=== PATIENT | male | born 1930 | race Caucasian/White ===

== ENCOUNTER → 2016-12-15 | Outpatient (CLI) | payer BC ==
[~2016-12-15] MED LIST: ALBUAER19 INH; ASPI81TA21 PO; ATOR-26 PO; FLUT220A INH; FRS/40 PO; LISI-790 PO; TERA1CAP63 PO; XRL15 PO; ZOLP5TAB PO
--- NOTE | 2016-12-15 12:06 | DIAGNOSTIC IMAGING REPORT ---
CT OF THE CHEST WITHOUT IV CONTRAST CLINICAL HISTORY: Thoracic aneurysm COMPARISON STUDY: 06/15/2016 CT DOSE: 410.57 mGy.cm TECHNIQUE: CT of the thorax was performed from the thoracic inlet to the lung bases. Images are reviewed in the axial, sagittal, and coronal planes. IV contrast was not administered for this examination. FINDINGS: Thyroid: Imaged portions of the thyroid gland are normal in appearance. Thoracic aorta: Evaluation of the thoracic aorta is limited given the lack of intravenous contrast. There is aneurysmal dilatation of the descending thoracic aorta which measures 5.5 cm in maximal diameter. Heart: There are coronary artery calcifications. There is a 4 cm right cardiophrenic angle cyst. Lungs and pleural spaces: There are progressive nodular airspace opacities within the right lower lobe medially. Mediastinum: Mediastinal lymph nodes are the upper limits of normal in size Jeni: There is no evidence of pathologic hilar adenopathy given the limitations of a noncontrast study Axilla: Clear. Upper abdomen: There is a hiatal hernia. Skeletal structures: There are no lytic or blastic osseous lesions. IMPRESSION: 1. 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 This remain similar in size 2. Coronary artery calcifications 3. Hiatal hernia 4. Progressive nonspecific nodular airspace opacities within the right lower lobe. Does this patient have clinical findings suspicious for a pneumonitis? Electronically signed by: Horacio Polo M.D. 12/15/2016 12:05 PM Dictated Date/Time: 12/15/2016 11:56 AM
== END | disposition home or self-care (01) ==
LOC: C.CTS 11:42
PROVIDERS: ATTEND Surgery
DX: I71.2 Thoracic aortic aneurysm, without rupture (principal); R91.8 Other nonspecific abnormal finding of lung field; I25.10 Atherosclerotic heart disease of native coronary artery without angina pectoris; K44.9 Diaphragmatic hernia without obstruction or gangrene

== ENCOUNTER → 2017-01-15 | Outpatient (CLI) | payer BC ==
--- NOTE | 2017-01-15 15:21 | DIAGNOSTIC IMAGING REPORT ---
RIGHT HAND MIN 3 VIEWS ROUTINE CLINICAL HISTORY: R23.3 Spontaneous hematoma of handThumb hematoma- COMPARISON: None. DISCUSSION: The bones are osteopenic. There are moderate osteoarthritic changes. No acute fractures are visualized. There is a periarticular calcification at the level of the dorsal aspect of the proximal to phalangeal joint of the index finger. IMPRESSION: Osteopenia and moderate osteoarthritic change. No acute fractures are visualized. Electronically signed by: Horacio Polo M.D. 01/15/2017 3:19 PM Dictated Date/Time: 01/15/2017 3:18 PM
== END | disposition home or self-care (01) ==
LOC: C.RAD1850 15:05
PROVIDERS: ATTEND Physician Assistant
DX: R23.3 Spontaneous ecchymoses (principal); M85.841 Other specified disorders of bone density and structure, right hand

== ENCOUNTER → 2017-02-15 | Outpatient (CLI) | payer BC | END | disposition home or self-care (01) | LOC: C.LAB1850 07:44 | PROVIDERS: ATTEND Internal Medicine Cardiovascular Disease | DX: E78.5 Hyperlipidemia, unspecified (principal) ==

== ENCOUNTER → 2017-03-17 | Outpatient (CLI) | payer BC ==
--- NOTE | 2017-03-17 09:53 | DIAGNOSTIC IMAGING REPORT ---
(CHEST) THORAX WITHOUT CT DOSE: 358.97 mGy.cm HISTORY: Follow-up study of a focal ground glass opacity TECHNIQUE: Multiaxial CT images of the chest were performed without contrast. COMPARISON: Chest CT 12/15/2016. FINDINGS: Nodular thyroid is seen with a 1.1 cm lesion of the posterior right thyroid lobe, similar from comparison and nonspecific. Evaluation for adenopathy is limited without the use of IV contrast. No pathologically enlarged lymph nodes are seen by CT size criteria. Cardiac silhouette is enlarged with extensive coronary arterial calcifications. There is moderate atherosclerosis of the aorta. There is unchanged appearance of a 5.5 cm transverse dimension saccular aneurysm of the proximal descending thoracic aorta, stable from comparison. There is no pneumothorax or pleural effusion. There is resolution of the previously described nodular alveolar opacities of the medial basal segment right lower lobe. There is minimal subsegmental areas of pleural parenchymal scarring of the lung bases. The central airways are patent. 3 mm linear area of nodularity within the posterior basal segment left lower lobe as seen on image 38 of the axial series is unchanged likely benign. Moderate sized hiatal hernia with partially intrathoracic stomach is seen. There is moderate pancreatic atrophy. Nonspecific 4 mm low attenuating lesion of the left hepatic lobe is unchanged and with statistically favor a hepatic cyst. Soft tissues are unremarkable. The bones are moderately demineralized. Prior median sternotomy. Multilevel bridging osteophytes are seen throughout the spine. IMPRESSION: 1. Resolution of the previously described nodular alveolar opacities of the medial basal segment right lower lobe compatible with healed infectious or inflammatory pneumonitis. 2. No acute cardiopulmonary process. 3. 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 4. Moderate sized hiatal hernia with partial intrathoracic stomach. Electronically signed by: Daren Sheehan M.D. 03/17/2017 9:51 AM Dictated Date/Time: 03/17/2017 9:44 AM
== END | disposition home or self-care (01) ==
LOC: C.CTS 09:27
PROVIDERS: ATTEND Surgery
DX: R91.8 Other nonspecific abnormal finding of lung field (principal)

== ENCOUNTER → 2017-08-16 | Outpatient (CLI) | payer BC ==
[2017-08-16 09:37] LABS: BASO % 0.4 %; BASO ABS # 0.02 K/uL (0-0.2); COMPLETE YES; EOS % 3.8 %; HEMATOCRIT 38.9 % (42-52); IG% 0.2 %; LYMPH % 17.5 %; LYMPH ABS # 0.93 K/uL (1.2-3.4); MEAN CELL VOLUME 93.1 fL (80-100); MEAN CORPUSCULAR HEMOGLOBIN 29.9 pg (25-34); MEAN CORPUSCULAR HGB CONC 32.1 g/dl (32-36); MEAN PLATELET VOLUME 9.7 fL (7.4-10.4); MONO % 7.2 %; NEUT % 70.9 %; PLATELET COUNT 126 K/uL (130-400); RED BLOOD COUNT 4.18 M/uL (4.7-6.1); WHITE BLOOD COUNT 5.31 K/uL (4.8-10.8)
[2017-08-16 10:01] LABS: ALT/SGPT 32 U/L (12-78); AST/SGOT 28 U/L (15-37); BLOOD UREA NITROGEN 18 mg/dl (7-18); BUN/CREATININE RATIO 15.9 (10-20); CALCIUM 8.2 mg/dl (8.5-10.1); CARBON DIOXIDE 29 mmol/L (21-32); CHLORIDE 110 mmol/L (98-107); GLUCOSE 100 mg/dl (70-99); POTASSIUM 3.7 mmol/L (3.5-5.1); SODIUM 141 mmol/L (136-145)
[2017-08-16 10:04] LABS: ALKALINE PHOSPHATASE 64 U/L (45-117); CHOLESTEROL 122 mg/dl (0-200); CHOLESTEROL/HDL RATIO 1.7; HDL CHOLESTEROL 72 mg/dl; LDL CHOLESTEROL CALCULATED 42 mg/dl; TRIGLYCERIDES 38 mg/dl (0-150); VERY LOW DENSITY LIPOPROT CALC 8 mg/dl
== END | disposition home or self-care (01) ==
LOC: C.LAB1850 08:00
PROVIDERS: ATTEND Internal Medicine Pulmonary Disease
DX: J45.909 Unspecified asthma, uncomplicated (principal); I10 Essential (primary) hypertension; N40.0 Benign prostatic hyperplasia without lower urinary tract symptoms; G47.00 Insomnia, unspecified; I25.5 Ischemic cardiomyopathy; R91.8 Other nonspecific abnormal finding of lung field

== ENCOUNTER 2018-09-21 11:24 | Inpatient (IN) ==
--- NOTE | 2018-09-15 09:50 | Anesthesiology Consultation ---
Date of Service September 15, 2018 Assessment & Plan (1) Encounter for pre-operative examination: Plan: - Surgery originally scheduled 07/19/18; rescheduled due to not optimized per pulmonary. Asthma exacerbation 06/2018 s/p antibiotics/prednisone. Seen again by pulmonary= 09/05/18= "patient is much better on his current regimen of inhlaers and is back to his baseline...still shows significant obstructive changes on his PFTs but is currently stable.. can proceed with his surgery with Dr. Mijares" - Cardio= 06/15/18= "acceptable risk to proceed with upcoming surgery without any additional CV testing or intervention. Recommend close monitoring and avoidance of hypotension HTN, tachycardia, hypoxia, and significant anemia throughout the perioperative period to reduce myocardial oxygen demand and meet myocardial oxygen delivery. Seen again by cardio= 08/18/18= "stable from a CV standpoint." - Plan for lumbar drain; Dr. Chambers aware of case/updated testing and states okay to proceed with surgery. Chart Review Chart Review: Acceptable Risk for Surgery and Patient NOT seen in Pre Admission Testing History Surgery Operation Date: 09/21/18 13:00 Proposed Procedures p Thoracic Endovascular Aneurysm Repair - Beny Mijares MD Height/Weight Height: 5 ft 9 in Weight: 90.718 kg Allergies Allergy/AdvReac Type Severity Reaction Status Date / Time No Known Allergies Allergy Verified 08/31/15 11:42 Medications Home Medications Medication Instructions Recorded Confirmed Last Taken albuterol sulfate [ProAir HFA] 2 puff INHALATION Q4 PRN 05/19/18 09/07/18 Unknown aspirin 81 mg PO QAM 05/19/18 09/07/18 06/08/18 atorvastatin 80 mg PO HS 05/19/18 09/07/18 06/08/18 furosemide 40 mg PO Q2D 05/19/18 09/07/18 Unknown terazosin 10 mg PO QAM 05/19/18 09/07/18 06/08/18 zolpidem 10 mg PO HS 05/19/18 09/07/18 06/08/18 lisinopril 10 mg PO QAM 06/09/18 09/07/18 06/08/18 metoprolol tartrate 0.5 tab PO BID 06/24/18 09/07/18 Unknown budesonide-formoterol [Symbicort] 2 puff INHALATION BID 09/07/18 09/07/18 Unknown Past Medical History Medical History Thrombocytopenia CHRONIC Asthma RESCUE INHALER LAST USED A COUPLE DAYS AGO BPH (benign prostatic hyperplasia) CAD (coronary artery disease) S/P CABG X3 (2014) CHF (congestive heart failure) DIASTOLIC- NO RECENT ISSUES COPD (chronic obstructive pulmonary disease) Cancer SKIN History of atrial fibrillation PAROXYSMAL; "NO ANTICOAGULATION D/T SPONTANEOUS HEMORRHAGE" PER CARDIO RECORDS History of leukemia CHEMO (10+ YEARS AGO) Hx of deep venous thrombosis 10 YEARS AGO WHEN DX WITH LEUKEMIA Hx of gastroesophageal reflux (GERD) CONTROLLED Hyperlipidemia Hypertension Myocardial infarction S/P CABG X3 (2014) AT [facility] Neuropathy Obesity Osteoarthritis Peripheral neuropathy Thoracic aortic aneurysm REASON FOR PROCEDURE= 6.5CM* Past Family History Family History Other No pertinent family history Past Surgical History Surgical History History of cataract surgery LEFT History of tonsillectomy History of tooth extraction History of total right hip arthroplasty Hx of colonoscopy Hx of transurethral resection of prostate Social History Smoking Status: Former smoker tobacco type: cigarettes Smoking cigarettes per day: QUIT 40 YRS AGO; "LIGHT USE" PRIOR TO QUITTING Do You Dip or Chew Tobacco: No Smoking End Date: QUIT OVER 40 YEARS AGO Hx Alcohol Use: Yes Alcohol type: wine alcohol intake frequency: 0-2 drinks per day Alcohol Intake Frequency Comment: 8OUNCES DAILY Hx Substance Use: No substance use type: does not use Testing Electrocardiogram Date: 06/09/18 SR with first degree AVB with PACs at 66bpm. Minimal voltage criteria for LVH, may be normal variant. Inferior/anterior infarct (cited on/before per cardio). Chest X-Ray Date: 06/09/18 Abnormal left mediastinal contour due to the known descending thoracic aortic aneurysm. This is suboptimally assessed by radiography. Followup pulmonary office visit done 09/05/18 Echocardiogram Date: 09/01/15 LVEF 50%. Moderate anterospetal HK. Mild global HK of remaining segments. Mild aorta ascending dilation 4cm. No significant valvular disease. Cardiac Catheterization Date: 01/23/15 Severe 3V CAD (80-95% left main, 95% pLAD/pD1/pleft CX, 80% pOM1, 100% pRCA with left to right distal collateralization). Subsequent CABG x 3 done Pulmonary Function Test Date: 09/05/18 Severe obstructive airways disease. FEV1 1.32; 45% predicted. Laboratory Results 09/13/18 WBC 4.96 H/H 10.8/34.4 PLATELETS 114 SODIUM 142 POTASSIUM 4.1 CHLORIDE 110 CO2 27 BUN 20 CREATININE 1.23 GLUCOSE 91 PT 11.1 PTT 27.6 INR 1.1
--- NOTE | 2018-09-21 06:01 | History & Physical Report ---
Date of Service September 21, 2018 Assessment & Plan (1) Descending thoracic aortic aneurysm: Patient is admitted for a TEVAR of his descending thoracic aortic aneurysm. I have discussed the risks options and benefits of the procedure with the patient. The patient understands the risks options and benefits and agrees to the procedure. History of Present Illness Chief Complaint: Descending thoracic aneurysm Primary Care Provider: Abelardo Kenney MD Mr. Abelardo Salazar is a pleasant 88-year-old gentleman with multiple medical comorbidities who is being seen for a 6.5 cm thoracic aortic aneurysm. The patient says that he first learned about his aneurysm in 2014, when he had a heart attack and underwent a CABG. This was done [facility]. The patient says that he was seen by Dr. Bates for this and then referred to us for further evaluation and possible intervention. In the interim, the patient developed right-sided chest pain that he felt was musculoskeletal. He did have some weakness at that time and due to the concern for his aneurysm, he presented to the Emergency Department for further evaluation. He underwent a chest CT that did show increase in his aneurysm size from previously 5.5 one year ago to 6.5 cm now. Presently, he denies any chest pain or back pain. Regarding risk factors, the patient denies any family history of aneurysmal disease. He does note that his mother suddenly at the age of 63, but they are unclear as to the etiology of her passing. He additionally says that he had a remote tobacco use, but that it was very brief. The patient says that he smoked a few cigarettes 40 years ago. 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 He does say that he can ambulate as far as he needs to and denies symptoms of claudication Allergies Allergy/AdvReac Type Severity Reaction Status Date / Time No Known Allergies Allergy Verified 08/31/15 11:42 Home Medications Home Medications Medication Instructions Recorded Confirmed Type albuterol sulfate [ProAir HFA] 2 puff INHALATION Q4 PRN 05/19/18 09/07/18 History aspirin 81 mg PO QAM 05/19/18 09/07/18 History atorvastatin 80 mg PO HS 05/19/18 09/07/18 History furosemide 40 mg PO Q2D 05/19/18 09/07/18 History terazosin 10 mg PO QAM 05/19/18 09/07/18 History zolpidem 10 mg PO HS 05/19/18 09/07/18 History lisinopril 10 mg PO QAM 06/09/18 09/07/18 History metoprolol tartrate 0.5 tab PO BID 06/24/18 09/07/18 History budesonide-formoterol [Symbicort] 2 puff INHALATION BID 09/07/18 09/07/18 History Past Med/Surg History Medical History Asthma RESCUE INHALER LAST USED A COUPLE DAYS AGO BPH (benign prostatic hyperplasia) CAD (coronary artery disease) S/P CABG X3 (2014) CHF (congestive heart failure) DIASTOLIC- NO RECENT ISSUES COPD (chronic obstructive pulmonary disease) Cancer SKIN History of atrial fibrillation PAROXYSMAL; "NO ANTICOAGULATION D/T SPONTANEOUS HEMORRHAGE" PER CARDIO RECORDS History of leukemia CHEMO (10+ YEARS AGO) Hx of deep venous thrombosis 10 YEARS AGO WHEN DX WITH LEUKEMIA Hx of gastroesophageal reflux (GERD) CONTROLLED Hyperlipidemia Hypertension Myocardial infarction S/P CABG X3 (2014) AT [place] Neuropathy Obesity Osteoarthritis Peripheral neuropathy Thoracic aortic aneurysm REASON FOR PROCEDURE= 6.5CM* Thrombocytopenia CHRONIC Surgical History History of cataract surgery LEFT History of tonsillectomy History of tooth extraction History of total right hip arthroplasty Hx of colonoscopy Hx of transurethral resection of prostate Family History Other No pertinent family history Social History Current Living Situation: Spouse Feels Safe at Home: Yes Smoking Status: Former smoker Second Hand Exposure: No Hx Alcohol Use: Yes Alcohol type: wine Alcohol Intake Frequency: 0-2 drinks per day Hx Substance Use: No Beliefs That Will Affect Care: None Preferred Language: Beninese Communication Ability: Effective Review of Systems All systems reviewed & are unremarkable except as noted in HPI & below Physical Exam 2 Vital Signs (Past 24 Hours): In general, he is awake, alert, and pleasant, in no acute distress. His neck is supple and trachea is midline. I did not appreciate a bruit over either carotid. His lungs are clear to auscultation bilaterally. His heart is regular rate and rhythm. His abdomen is obese, soft , nontender, nondistended. The patient has palpable femoral pulses bilaterally. He additionally has palpable DP pulses in his bilateral feet. He does have an approximately 5 cm cystic structure on his right lower calf. This is nontender to palpation. It is also a nonpulsatile. The patient underwent a CT of the chest on May 05, 2018. This confirmed presence of a 6.5 x 5.8 cm saccular aneurysm of the descending thoracic aorta.
[~2018-09-21 11:24] MED LIST changes: -ALBUAER19 INH; -ASPI81TA21 PO; -ATOR-26 PO; +BUPIVACAINE/EPINEPHRINE 0.5% MPF 1:200,000 30 ML VIAL ONE; +CEFAZOLIN 2000MG 2,000 MG/15 ML SYR IV SCH; -FLUT220A INH; -FRS/40 PO; +KETAMINE HCL INJ 50 MG/ML 10 ML VIAL ONE; +LIDOCAINE HCL 2% 2 ML VIAL/AMP(20MG/ML) INFIL ONE; -LISI-790 PO; +LR 15ML/HR IV SCH; +MIDAZOLAM HCL 1 MG/ML 2ML VIAL ONE; +PHENYLEPHRINE HCL 10 MG/ML VIAL ONE; +SODIUM CHLORIDE 0.9% 1000ML IV SCH; -TERA1CAP63 PO; -XRL15 PO; -ZOLP5TAB PO; +fentaNYL citrate 100 MCG/2 ML VIAL ONE
[2018-09-21] MEDS ORDERED: LIDOCAINE 2% JELLY 5 ML TUBE ONE (11:42)
--- NOTE | 2018-09-21 11:43 | History & Physical Bridge Note ---
Date of Service September 21, 2018 History & Physical Bridge Note I have examined the patient, reviewed the History & Physical and in the interval since the performance of the History & Physical I have noted the following changes of clinical significance: no changes noted
[2018-09-21] MEDS ORDERED: HYDROmorphone INJ 1 MG/ML SYRINGE IV PRN (12:49)
[2018-09-21] MEDS ORDERED: LABETALOL HCL IV 5 MG/ML 20ML IV PRN (12:49)
[2018-09-21] MEDS ORDERED: ATROPINE SULFATE 0.1 MG/ML 10ML SYR IV PRN (12:49)
[2018-09-21] MEDS ORDERED: ONDANSETRON INJ 2 MG/ML 2 ML VIAL IV PRN ×2 (12:49→17:14)
[2018-09-21] MEDS ORDERED: MIDAZOLAM HCL 1 MG/ML 2ML VIAL ONE (13:26)
[2018-09-21] MEDS ORDERED: fentaNYL citrate 100 MCG/2 ML VIAL ONE (14:27)
[2018-09-21] MEDS ORDERED: PROPOFOL IV EMULSION 10 MG/ML 20 ML VIAL IV ONE (14:54)
[2018-09-21] MEDS ORDERED: SUCCINYLCHOLINE 100MG/5ML SYR ONE (14:54)
[2018-09-21] MEDS ORDERED: ePHEDrine sulfate 50 MG/ML SYR ONE (14:54)
[2018-09-21] MEDS ORDERED: PROTAMINE SULFATE 10 MG/ML 5 ML VIAL ONE (14:54)
[2018-09-21] MEDS ORDERED: HEPARIN SOD (PORCINE) 1000 UNIT/ML 10 ML VIAL ONE (14:54)
[2018-09-21] MEDS ORDERED: LARYING-O-JET KIT (LTA) ONE (14:55)
[2018-09-21] MEDS ORDERED: ESMOLOL HCL INJ 10 MG/ML 10ML VIAL IV ONE (15:24)
--- NOTE | 2018-09-21 16:02 | Post Operative Brief Note ---
Immediate Post Op Note v1 Date of Surgery September 21, 2018 Pre & Post Diagnosis Operation Date: 09/21/18 13:10 Pre-Op Diagnosis: Thoracic Aortic Aneurysm Post-Op Diagnosis: Thoracic Aortic Aneurysm Procedure Operation Date: 09/21/18 13:10 Actual Procedures p Thoracic endovascular Aneurysm repair, Right groin exposure(Bilateral) - Beny Mijares MD Surgeon Beny Mijares MD Flosser A MD Woody Estimated Blood Loss 250 Findings Consistent with Post-Op Diagnosis Drains Escobar Catheter Anesthesia Type General Complications none Disposition Accompanied Patient To Recovery: No Disposition: Surgical ICU
--- NOTE | 2018-09-21 16:21 | Operative Report ---
Post Operative Report Pre & Post Diagnosis Operation Date: 09/21/18 13:10 Pre-Op Diagnosis: Thoracic Aortic Aneurysm Post-Op Diagnosis: Thoracic Aortic Aneurysm Procedure Operation Date: 09/21/18 13:10 Actual Procedures p Thoracic endovascular Aneurysm repair, Right groin exposure(Bilateral) - eBny Mijares MD Surgeon Beny Mijares MD C Application Developer Tomi Mckay MD Estimated Blood Loss 250 Findings Consistent with Post-Op Diagnosis Specimens None Anesthesia Type General Complications none Disposition Accompanied Patient To Recovery: No Disposition: Surgical ICU Indications This is an 88-year-old male with a known history of a thoracic aortic aneurysm, which grew recently from 5.5 cm to 6.5 cm and therefore repair is indicated. He was in agreement to the procedure after full explanation of the risks and benefits. Description of Procedure Patient was brought to the operating room and identified as Abelardo Salazar. A lumbar drain was placed by our anesthesia colleagues without complication with good flow of CSF. He was then positioned supine on the operating table and a Escobar catheter was placed and a radial arterial line was placed. Monitored anesthesia care was given. His bilateral groins were prepped and draped in the usual sterile fashion. The left common femoral artery was accessed with a needle through which a wire was introduced and a 5 Moroccan sheath was then introduced. Angiogram confirmed positioning within the common femoral artery. Similarly, on the right, a needle was used to access the right common femoral artery through which a wire was advanced and a 5 Moroccan sheath was placed. Angiography here again revealed placement within the common femoral artery which was of large caliber able to accommodate the 24 Moroccan sheath eventually. At that point the 5 Moroccan sheath was removed from the right groin and a Perclose device was placed over the wire and fired without incident. A second Perclose device was then placed over the wire, but appeared to have issues with deployment so was removed. A third Perclose device was then advanced over the wire and deployed. A fourth Perclose device was similarly applied. At this point, an 8 Moroccan sheath was advanced over the wire into the right common femoral artery, but did not appear to create a good seal with the arteriotomy. Therefore this was replaced with an 11 Moroccan sheath, which also did not create a good seal of the wrist significant bleeding around the sheath with a small groin hematoma. At that point, it was felt that the Perclose device may have misfired and caused injury to the artery, therefore the decision was made to do an open cutdown of the right groin. A vertical incision was made over the puncture site and the tissues were dissected with electrocautery. A combination of blunt dissection with hemostats and electrocautery were then used to isolate the common femoral artery, an angled DeBakey clamps were used to gain proximal and distal control. At this point, the bleeding was greatly reduced. A vessel loop was passed twice around the artery proximally and held in place with a hemostat, which then provided adequate proximal control. It was noted at this point that significant transverse shredding of the common femoral artery had occurred with use of the PerClose device, leaving a large arteriotomy through which the 8 Moroccan sheath followed by the 11 Moroccan sheath were passed. These were noted to go up the right iliac arteries into the aorta without issue. Therefore under fluoroscopy the 22 Moroccan dilator was passed proximally into the right common iliac artery. This was then removed and the 24 Moroccan sheath advanced into the right common iliac artery. Through this, a Lunderquist wire was used to advance proximally into the area of the proximal descending aorta up in the thoracic cavity. Through the left-sided 5 Moroccan sheath, a Woodson wire was inserted but the left common iliac artery was noted to take a tortuous course. Therefore the Kumpe catheter was inserted over the wire and used to help guide the wire proximally up to the proximal descending aorta. This was then replaced with a pigtail catheter. An aortogram was performed that showed the aneurysm in its entirety as well as adequate proximal and distal landing zones. A 37 mm x 10 cm CTAG device was selected as an endograft. This was inserted through the 24 Moroccan sheath after it had been advanced into the distal aorta over the dilator. The device was positioned with the proximal most extent in the proximal landing zone. It was deployed without issue, however noted that it did not quite extend long enough to reach the distal landing zone adequately. Therefore the decision was made to place another device, this time at 37 mm x 15 cm CTAG device, within the initial graft. This was similarly advanced at the aorta through the 24 Moroccan sheath, with its proximal landing site being at the level of the previous proximal landing site, but the distal landing zone extending about 5 cm beyond the previous one. This was also deployed without difficulty. A trilobed balloon was then inserted through the 24 Moroccan sheath and used with manual inflation to balloon the areas at the proximal landing zone, distal landing zone, as well as the area of overlap between the 2. Completion aortogram noted brisk flow of contrast through the endograft without signs of leak. Attention was then turned to the right groin, where DeBakey clamps were reapplied to gain proximal control of the common femoral artery and the vessel loop was removed. The artery was noted to come together nicely in a transverse fashion, therefore 5-0 Prolene was used in a simple interrupted fashion to transversely close the arteriotomy site. Good pulses were noted in the distal common femoral artery after this repair. Hemostasis was achieved with electrocautery. A sheet of Surgicel was applied temporarily while attention was turned to the left groin, where a Star close device was used to close the arteriotomy and the 5 Moroccan sheath site of the left common femoral artery. This was deployed without issue and Arixtra was applied within the wound. Attention was then returned to the right groin, where the Surgicel was removed and hemostasis was noted. Femoral sheath was closed with 2-0 Vicryl in a running fashion. The subcutaneous tissues were closed with 3-0 Vicryl in a running subcutaneous fashion. The skin was closed with dahiana. At the end of the case, all instrument counts were correct. Patient tolerated the procedure well without issues and his spinal cord fusion pressure was maintained above 85 mmHg throughout the case. Approximately 10 mL's of CSF was drained during the case to achieve this. He was transferred to the ICU in stable condition. Dr. Mijares was present and scrubbed for the entire procedure. I attest to the content of the Intraoperative Record and any orders documented therein. Any exceptions are noted below.
[2018-09-21] MEDS ORDERED: ARISTA ABSORBABLE HEMOSTAT 3GM TOP ONE (16:23)
[2018-09-21] MEDS ORDERED: VISIPAQUE IV PRN (16:24)
[2018-09-21] MEDS ORDERED: SURGICEL ABSORB HEMOSTAT 2IN X 14IN TOP ONE (16:32)
[2018-09-21] MEDS ORDERED: ALBUTEROL HFA 8 GM INHALER INH PRN (17:14)
[2018-09-21] MEDS ORDERED: MoRPHine SULFATE 4 MG/ML 1 ML CARP\\VIAL IV PRN (17:14)
[2018-09-21] MEDS: D5W AND 1/2NSS 1,000 ML IV SCH (17:15)
--- NOTE | 2018-09-21 17:25 | Anesthesiology Progress Note ---
Date of Service September 21, 2018 Anesthesia Post Procedure Vital Signs Vital Signs: Temp Pulse Pulse Resp BP BP BP 09/21/18 17:01 70 22 160/91 H 09/21/18 17:00 36 C L 75 21 09/21/18 16:56 66 22 151/87 H 09/21/18 16:51 68 19 160/92 H 09/21/18 16:50 60 19 09/21/18 16:46 73 17 156/92 H 09/21/18 16:41 64 21 154/87 H 09/21/18 16:40 75 21 09/21/18 16:35 70 23 156/84 H 09/21/18 16:31 70 27 H 09/21/18 16:25 36.4 C L 69 20 194/87 H 09/21/18 12:09 36.9 C 72 20 173/103 H 177/97 H Pulse Ox 09/21/18 17:01 96 09/21/18 17:00 98 09/21/18 16:56 98 09/21/18 16:51 97 09/21/18 16:50 96 09/21/18 16:46 95 09/21/18 16:41 97 09/21/18 16:40 97 09/21/18 16:35 98 09/21/18 16:31 99 09/21/18 16:25 99 09/21/18 12:09 96 Notes Mental Status: alert / awake / arousable Patient Amnestic to Procedure: Yes Nausea / Vomiting: adequately controlled Pain: adequately controlled Airway Patency, RR, SpO2: stable & adequate BP & HR: stable & adequate Hydration State: stable & adequate Anesthetic Complications: no major complications apparent and Pt Satisfied with anesthetic care Notes: The patient is stable in the ICU. He has an epidural drain. Dr. Chambers spoke to Dr. Ackerman about the patient after the procedure was over.
[2018-09-21 17:30] LABS: Basophils # (auto) 0.02 K/uL (0-0.2); Basophils % (auto) 0.3 %; Eosinophils # (auto) 0.18 K/uL (0-0.5); Eosinophils % (auto) 2.7 %; Hemoglobin 8.6 g/dL (14.0-18.0); Immature Granulocytes # (auto) 0.01 K/uL (0.00-0.02); Immature Granulocytes % (auto) 0.2 %; Lymphocytes # (auto) 0.58 K/uL (1.2-3.4); Lymphocytes % (auto) 8.7 %; Mean Corpuscular Volume 93.4 fL (80-100); Mean Platelet Volume 9.3 fL (7.4-10.4); Monocytes # (auto) 0.34 K/uL (0.11-0.59); Monocytes % (auto) 5.1 %; Neutrophils # (auto) 5.52 K/uL (1.4-6.5); Platelet Count 100 K/uL (130-400); RDW Coefficient of Variation 15.5 % (11.5-14.5); RDW Standard Deviation 52.8 fL (36.4-46.3); Red Blood Count 2.89 M/uL (4.7-6.1); White Blood Count 6.65 K/uL (4.8-10.8)
[2018-09-21 18:01] LABS: Mean Corpuscular Hgb Conc 31.9 g/dL (32-36)
[2018-09-21 18:02] LABS: Ovalocytes 1+; Schistocytes 1+
[2018-09-21] MEDS ORDERED: SODIUM CHLORIDE 0.9% 250 ML IV PRN (18:30)
[2018-09-21] MEDS ORDERED: INFLUENZA ADMINISTRATION CHARGE ONE (19:45)
[2018-09-21] MEDS ORDERED: PNEUMOCOCCAL POLYSACCHARIDES 25 MCG/0.5 ML VIAL/SYR IM ONE (19:45)
[2018-09-21] MEDS ORDERED: INFLUENZA VACCINE HIGH DOSE 65+ 0.5 ML SYR IM ONE (19:45)
[2018-09-21] MEDS ORDERED: PNEUMOCOCCAL ADMINISTRATION CHARGE ONE (19:45)
[2018-09-21] MEDS ORDERED: SODIUM CHLORIDE 0.9% 1000ML 500 ML IV ONE (21:29)
[2018-09-21] MEDS: ATORVASTATIN 40 MG TAB PO SCH (21:51)
[2018-09-21] MEDS: BUDESONIDE/FORMOTEROL FUMARATE 160/4.5 60 PUFFS/INHALER INH SCH (21:52)
[2018-09-21] MEDS: CEFAZOLIN 1000MG 1,000 MG/7.5 ML SYR IV SCH (21:52)
[2018-09-22] MEDS: OXYCODONE/ACETAMINOPHEN 5mg/325mg TAB PO PRN ×4 (00:24→22:03)
[2018-09-22] MEDS: ZOLPIDEM TARTRATE 10 MG TAB PO SCH ×2 (00:25→22:05)
[2018-09-22] MEDS ORDERED: SODIUM CHLORIDE 0.9% 1000ML 500 ML IV ONE (00:34)
[2018-09-22] MEDS: D5W AND 1/2NSS 1,000 ML IV SCH ×2 (00:54→09:03)
[2018-09-22 05:05] LABS: Hematocrit (blood only) 26.4 % (42-52); Hemoglobin 8.4 g/dL (14.0-18.0); Mean Corpuscular Hgb Conc 31.8 g/dL (32-36); Mean Corpuscular Volume 92.6 fL (80-100); RDW Coefficient of Variation 15.9 % (11.5-14.5); RDW Standard Deviation 53.9 fL (36.4-46.3); Red Blood Count 2.85 M/uL (4.7-6.1); White Blood Count 7.16 K/uL (4.8-10.8)
[2018-09-22 05:24] LABS: Basophils # (auto) 0.01 K/uL (0-0.2); Basophils % (auto) 0.1 %; Eosinophils # (auto) 0.17 K/uL (0-0.5); Eosinophils % (auto) 2.4 %; Immature Granulocytes # (auto) 0.02 K/uL (0.00-0.02); Immature Granulocytes % (auto) 0.3 %; Lymphocytes # (auto) 0.64 K/uL (1.2-3.4); Lymphocytes % (auto) 8.9 %; Mean Platelet Volume 9.5 fL (7.4-10.4); Neutrophils # (auto) 5.82 K/uL (1.4-6.5); Neutrophils % (auto) 81.3 %; Platelet Count 85 K/uL (130-400); Polychromasia 1+
[2018-09-22] MEDS: CEFAZOLIN 1000MG 1,000 MG/7.5 ML SYR IV SCH (05:30)
[2018-09-22 05:51] LABS: BUN Creatinine Ratio 19.1 (10-20); Calcium 7.4 mg/dl (8.5-10.1); Creatinine Clr Calc Pharmacy 80.2 ml/min; Est GFR (African American) 96.1; Est GFR (Non-African American) 82.9; Potassium 3.5 mmol/L (3.5-5.1)
[2018-09-22] MEDS ORDERED: SODIUM CHLORIDE 0.9% 250 ML IV PRN (06:06)
--- NOTE | 2018-09-22 08:12 | Anesthesiology Progress Note ---
Date of Service September 22, 2018 Anesthesia Post Procedure Vital Signs Vital Signs: Temp Pulse Pulse Resp BP BP BP 09/22/18 07:30 80 30 H 09/22/18 07:00 69 25 H 127/80 09/22/18 06:30 63 24 09/22/18 06:22 36.7 C 70 24 155/64 H 09/22/18 06:00 64 25 H 131/76 09/22/18 05:30 73 25 H 09/22/18 05:00 126/77 09/22/18 04:30 77 25 H 09/22/18 04:20 75 24 09/22/18 04:10 78 25 H 09/22/18 04:00 09/22/18 03:30 82 24 09/22/18 03:00 85 26 H 09/22/18 02:39 130/74 09/22/18 02:00 76 23 130/74 09/22/18 01:47 83 09/22/18 01:00 71 22 137/81 09/22/18 00:01 74 22 147/91 H 09/21/18 23:01 36.4 C L 67 22 156/84 H 09/21/18 23:00 09/21/18 22:00 75 22 154/77 H 09/21/18 21:30 36.5 C 67 20 09/21/18 21:00 73 20 135/86 09/21/18 20:45 68 20 162/71 H 09/21/18 20:30 66 23 09/21/18 20:15 36.3 C L 74 17 160/73 H 09/21/18 20:00 82 21 136/78 09/21/18 19:26 36.4 C L 85 25 H 158/59 H 09/21/18 19:15 09/21/18 19:01 36.4 C L 90 21 125/74 09/21/18 18:30 82 20 09/21/18 18:01 85 19 155/83 H 09/21/18 18:00 77 28 H 09/21/18 17:30 70 23 09/21/18 17:28 71 24 159/94 H 09/21/18 17:26 72 23 161/94 H 09/21/18 17:21 71 18 156/86 H 09/21/18 17:16 69 23 151/89 H 09/21/18 17:11 68 21 152/90 H 09/21/18 17:06 71 24 157/81 H 09/21/18 17:01 70 22 160/91 H 09/21/18 17:00 36 C L 75 21 09/21/18 16:56 66 22 151/87 H 09/21/18 16:51 68 19 160/92 H 09/21/18 16:50 60 19 09/21/18 16:46 73 17 156/92 H 09/21/18 16:41 64 21 154/87 H 09/21/18 16:40 75 21 09/21/18 16:35 70 23 156/84 H 09/21/18 16:31 70 27 H 09/21/18 16:25 36.4 C L 69 20 194/87 H 09/21/18 12:09 36.9 C 72 20 173/103 H 177/97 H Pulse Ox 09/22/18 07:30 100 09/22/18 07:00 96 09/22/18 06:30 99 09/22/18 06:22 97 09/22/18 06:00 95 09/22/18 05:30 95 09/22/18 05:00 98 09/22/18 04:30 100 09/22/18 04:20 99 09/22/18 04:10 100 09/22/18 04:00 100 09/22/18 03:30 99 09/22/18 03:00 99 09/22/18 02:39 09/22/18 02:00 99 09/22/18 01:47 09/22/18 01:00 99 09/22/18 00:01 100 09/21/18 23:01 100 09/21/18 23:00 100 09/21/18 22:00 100 09/21/18 21:30 100 09/21/18 21:00 100 09/21/18 20:45 100 09/21/18 20:30 100 09/21/18 20:15 99 09/21/18 20:00 100 09/21/18 19:26 100 09/21/18 19:15 100 09/21/18 19:01 99 09/21/18 18:30 100 09/21/18 18:01 97 09/21/18 18:00 98 09/21/18 17:30 99 09/21/18 17:28 98 09/21/18 17:26 95 09/21/18 17:21 98 09/21/18 17:16 97 09/21/18 17:11 96 09/21/18 17:06 98 09/21/18 17:01 96 09/21/18 17:00 95 09/21/18 16:56 98 09/21/18 16:51 97 09/21/18 16:50 96 09/21/18 16:46 95 09/21/18 16:41 97 09/21/18 16:40 97 09/21/18 16:35 98 09/21/18 16:31 99 09/21/18 16:25 99 09/21/18 12:09 96 Pain Intensity Lower Back: Pain Intensity: 3 Notes Mental Status: alert / awake / arousable Patient Amnestic to Procedure: Yes Nausea / Vomiting: adequately controlled Pain: adequately controlled Airway Patency, RR, SpO2: stable & adequate BP & HR: stable & adequate Hydration State: stable & adequate Anesthetic Complications: no major complications apparent Notes: Patient looks very good, breathing comfortably. Platelet count dropped slightly post-op. Will need to monitor for when spinal drain needs to be removed.
[2018-09-22] MEDS: BUDESONIDE/FORMOTEROL FUMARATE 160/4.5 60 PUFFS/INHALER INH SCH ×2 (09:01→22:04)
[2018-09-22] MEDS: FUROSEMIDE 40 MG TAB PO SCH (09:01)
[2018-09-22] MEDS: ASPIRIN 81 MG ECTAB PO SCH (09:01)
[2018-09-22] MEDS: TERAZOSIN HCL 5 MG CAP PO SCH (09:01)
[2018-09-22] MEDS: LISINOPRIL 10 MG TAB PO SCH (09:02)
--- NOTE | 2018-09-22 09:45 | Communication Note ---
Date of Service: September 22, 2018 Patient with Hgb of 8.4. Will transfuse one unit. This is blood loss anemia from the surgical procedure.
--- NOTE | 2018-09-22 13:02 | Surgery Progress Note ---
Date of Service September 22, 2018 Assessment & Plan (1) Descending thoracic aortic aneurysm: Patient doing well today, will discontinue arterial line, spinal drain, and alvarado catheter. Continue diet as tolerated and wound care to the right groin. Continue home medications, including aspirin 81 mg, statin, beta jaya , and lasix. Encourage walking and deep breathing after catheters removed today. Possible discharge to home tomorrow. Present on Admission?: Yes Subjective No issues overnight, pain well controlled currently. Has intact sensation and motor function of both lower extremities without any deficits. Is tolerating food without nausea/vomiting. Has not been out of bed yet due to presence of spinal drain. Review of Systems All systems reviewed & are unremarkable except as noted in HPI & below Physical Exam 2 Vital Signs (Past 24 Hours): Last Vital Signs Temp 36.7 C 09/22/18 12:00 Pulse 90 09/22/18 12:00 Resp 18 09/22/18 12:00 BP 118/64 09/22/18 12:00 Pulse Ox 94 09/22/18 12:00 Constitutional: well developed and well nourished Eyes: + anicteric sclerae Neck: normal visual inspection Respiratory: normal respiratory effort Cardiovascular: Rate/Rhythm: regular rate and regular rhythm Extremities: normal capillary refill Gastrointestinal (Abdomen): Percussion/Palpation: abdomen soft Musculoskeletal: Flank ecchymoses on R side without progression past markings , no large ecchymoses, no ecchymoses/hematoma of L groin puncture site Skin: no rashes, warm and dry Neurologic: normal touch/pain/proprioception, CN's II-XI intact bilaterally, moves all extremities and awake
--- NOTE | 2018-09-22 13:19 | Procedure Note ---
Procedure Note Date of Service September 22, 2018 Patient s/p endovascular thoracic aneurysm repair, doing well, surgeon requesting removal of his lumbar drain in anticipation of sending him home in the next couple days. Patient on his side, catheter out easily, no obvious drainage, site clear, tip intact. Will have him stay supine for 2 hours and was told not to do any lifting for at least several days. Reviewed post dural puncture headache - what to watch for, treatment if necessary, etc. He has not had any symptoms thus far.
[2018-09-22] MEDS: ATORVASTATIN 40 MG TAB PO SCH (22:04)
[2018-09-23] MEDS: OXYCODONE/ACETAMINOPHEN 5mg/325mg TAB PO PRN ×4 (03:29→20:43)
[2018-09-23] MEDS: LISINOPRIL 10 MG TAB PO SCH (07:50)
[2018-09-23] MEDS: BUDESONIDE/FORMOTEROL FUMARATE 160/4.5 60 PUFFS/INHALER INH SCH ×2 (07:50→20:39)
[2018-09-23] MEDS: TERAZOSIN HCL 5 MG CAP PO SCH (07:50)
[2018-09-23] MEDS: ASPIRIN 81 MG ECTAB PO SCH (07:50)
[2018-09-23] MEDS ORDERED: BISACODYL 10 MG SUPP PR PRN (08:49)
[2018-09-23] MEDS: DOCUSATE SODIUM 100 MG CAP PO SCH ×2 (09:37→20:38)
--- NOTE | 2018-09-23 10:32 | Surgery Progress Note ---
Date of Service September 23, 2018 Assessment & Plan (1) S/P thoracic aortic aneurysm repair: Pt doing well postop, remains stable. Remove alvarado and voiding trial today. Per ES, transfer to floor. Present on Admission?: No (2) Descending thoracic aortic aneurysm: Pt now s/p TEVAR with R groin cutdown, doing well. Present on Admission?: Yes Subjective 88 yo m POD #2 after TEVAR for descending thoracic aneurysm, seen in f/u today. Pt admits some pain R groin/flank, but states is mild. Admits penile pain with movement d/t swelling. Denies any other complaints. Physical Exam 2 Vital Signs (Past 24 Hours): Last Vital Signs Temp 36.7 C 09/23/18 08:00 Pulse 92 H 09/23/18 08:00 Resp 18 09/23/18 08:00 BP 114/67 09/23/18 08:00 Pulse Ox 95 09/23/18 08:00 Constitutional: well developed and well nourished Neck: normal visual inspection Respiratory: normal respiratory effort Cardiovascular: Rate/Rhythm: regular rate and regular rhythm Extremities: normal capillary refill Gastrointestinal (Abdomen): Percussion/Palpation: abdomen soft Skin: no rashes, warm and dry Neurologic: normal touch/pain/proprioception, CN's II-XI intact bilaterally, moves all extremities and awake
[2018-09-23] MEDS: ATORVASTATIN 40 MG TAB PO SCH (20:38)
[2018-09-23] MEDS: ZOLPIDEM TARTRATE 10 MG TAB PO SCH (20:44)
[2018-09-24] MEDS: ASPIRIN 81 MG ECTAB PO SCH (07:54)
[2018-09-24] MEDS: DOCUSATE SODIUM 100 MG CAP PO SCH (07:54)
[2018-09-24] MEDS: TERAZOSIN HCL 5 MG CAP PO SCH (07:54)
[2018-09-24] MEDS: LISINOPRIL 10 MG TAB PO SCH (07:55)
[2018-09-24] MEDS: FUROSEMIDE 40 MG TAB PO SCH (07:55)
[2018-09-24] MEDS: BUDESONIDE/FORMOTEROL FUMARATE 160/4.5 60 PUFFS/INHALER INH SCH (07:55)
--- NOTE | 2018-09-24 08:18 | Surgery Progress Note ---
Date of Service September 24, 2018 Assessment & Plan (1) Descending thoracic aortic aneurysm: This patient is doing well from his TVAR procedure. At this point he is being discharged today and will follow-up in the office in 1 week. Subjective This patient has no complaints. He does feel slightly weak but is able to get around without difficulty. He is tolerating his diet and he has no complaints of weakness in his legs. Physical Exam 2 Vital Signs (Past 24 Hours): Last Vital Signs Temp 36.7 C 09/24/18 07:31 Pulse 90 09/24/18 07:31 Resp 24 09/24/18 07:31 BP 161/90 H 09/24/18 07:31 Pulse Ox 94 09/24/18 07:31 Physical exam is awake alert and oriented x3.Abdominal exam is benign with good breath sounds. Is got good femoral pulses with good Doppler signals in the foot. His incision is well approximated and is healing nicely. The scrotum and penis edema has decreased. He is able to void without any difficulty.
--- NOTE | 2018-09-28 12:56 | Discharge Summary ---
Date of Service September 28, 2018 Admission HPI Per Admitting Provider Mr. Abelardo Salazar is a pleasant 88-year-old gentleman with multiple medical comorbidities who is being seen for a 6.5 cm thoracic aortic aneurysm. The patient says that he first learned about his aneurysm in 2014, when he had a heart attack and underwent a CABG. This was done [facility]. The patient says that he was seen by Dr. Bates for this and then referred to us for further evaluation and possible intervention. In the interim, the patient developed right-sided chest pain that he felt was musculoskeletal. He did have some weakness at that time and due to the concern for his aneurysm, he presented to the Emergency Department for further evaluation. He underwent a chest CT that did show increase in his aneurysm size from previously 5.5 one year ago to 6.5 cm now. Presently, he denies any chest pain or back pain. Regarding risk factors, the patient denies any family history of aneurysmal disease. He does note that his mother suddenly at the age of 63, but they are unclear as to the etiology of her passing. He additionally says that he had a remote tobacco use, but that it was very brief. The patient says that he smoked a few cigarettes 40 years ago. 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 He does say that he can ambulate as far as he needs to and denies symptoms of claudication Admission Exam Per Admitting Provider Pt is awake, alert, and pleasant, in no acute distress. His neck is supple and trachea is midline. I did not appreciate a bruit over either carotid. His lungs are clear to auscultation bilaterally. His heart is regular rate and rhythm. His abdomen is obese, soft, nontender, nondistended. The patient has palpable femoral pulses bilaterally. He additionally has palpable DP pulses in his bilateral feet. He does have an approximately 5 cm cystic structure on his right lower calf. This is nontender to palpation. It is also a nonpulsatile. The patient underwent a CT of the chest on May 05, 2018. This confirmed presence of a 6.5 x 5.8 cm saccular aneurysm of the descending thoracic aorta. Pt admitted for endovascular repair of descending thoracic aortic aneurysm. Principal Diagnosis 1. s/p Thoracic Endovascular Aneurysm Repair (TEVAR) 2. Descending thoracic aortic aneurysm Discharge Exam Constitutional well developed and well nourished Neck normal visual inspection Respiratory normal respiratory effort Cardiovascular Rate/Rhythm: regular rate and regular rhythm Extremities: normal capillary refill Gastrointestinal (Abdomen) Percussion/Palpation: abdomen soft Skin no rashes, warm and dry Neurologic normal touch/pain/proprioception, CN's II-XI intact bilaterally, moves all extremities and awake Discharge Data Allergies Allergy/AdvReac Type Severity Reaction Status Date / Time No Known Allergies Allergy Verified 09/21/18 11:51 Consultations 09/21/18 11:43 Consult [employer] Routine Procedures Performed Operation Date: 09/21/18 13:10 Actual Procedures p Thoracic endovascular Aneurysm repair, Right groin exposure(Bilateral) - Beny Mijares MD Ordered Studies 09/21/18 10:48 EV endorepair dscnd thor aorta Routine Hospital Course (1) S/P thoracic aortic aneurysm repair: Pt did well post op from TEVAR with groin cutdown. Spinal drain removed POD #1, pt without any neuro deficits. Minimal pain. Craig to be stable for d/ c POD #3 (2) Descending thoracic aortic aneurysm: Pt now s/p TEVAR with R groin cutdown, doing well. Total Time Total Time Spent Total Time Spent (In Minutes): 30 minutes Total Time Includes: Examination of the Patient, Discharge Planning, Medication Reconciliation and Communication With Other Providers Discharge Plan Discharge Items Patient Disposition: Home - Self-Care Reason For Visit: Thoracic Aortic Aneurysm Discharge Diagnosis: Descending thoracic aortic aneurysm Discharge Goals: Therapeutic intervention Activity: Per 'Additional Instructions' section Non-emergency contact: Surgeon Call non-emergency contact if: you have any medication questions, your symptoms worsen, your pain is not controlled, your pain is worsening, your pain is unusual for you, your pain is concerning for you, your temperature is above 101.5, your wound has increased redness, your wound has increased drainage and your wound pain has increased Follow-up/Referrals: Abelardo Kenney MD [Primary Care Provider] - Diet: Heart Healthy Addtl Provider Instructions: SPECIAL CARE INSTRUCTIONS: Medications: * Continue to take your medications as directed. Incision/Puncture Site Care: * You will have an incision or puncture in each of your groins. Liquid glue will be used to seal your incisions/puncture site. This will lift off as the incisions/puncture sites heal. * If Liquid glue is not used, there will be small dressings covering your incisions. After you get home, you may remove the dressings and shower - allowing the warm soapy water to run over it. * Be sure to dry the sites well and keep them dry. * DO NOT SOAK IN A TUB/POOL/etc. UNTIL ALL SURGICAL SITES ARE HEALED. DO NOT REMOVE THE GLUE UNTIL THE INCISIONS HEAL. Restrictions: * Limit yourself to doctor of nurse anesthesia activity for the first week. * You may walk and go up and down steps. * Avoid excessive bending or movement at the level of the incisions or punctures. Risks and Possible Complications: * Infection/Drainage/Bleeding - Drainage or bleeding from the incisions/ puncture site should be minimal. If you have excessive bleeding or drainage, call our office ([phone]) right away. * Pain/Numbness - You may experience some mild pain or soreness at your incision sites. You may also have some numbness around the incisions or into the insides of your thighs. Bruising is normal and should resolve within 2 weeks. * Changes in Appetite or Bowel Habits - Mostly related to anesthesia and pain medication, some patients have reported decreased appetite and/or problems with constipation. These symptoms usually improve over a few weeks. Remembering to take an [id number] stool softener, as directed, will help you to avoid constipation. Call our office and seek emergent treatment if you develop: * Fever or chills * Have a temperature greater than 101 degrees F * Any redness or purulent drainage from your incisions or punctures * Severe abdominal, chest or back pain SKIN IRRITATION: * You may experience some redness and/or swelling in the area where radiation was administered. If any skin irritation occurs, please contact your family physician. You will be receiving a call from the Vascular Surgery Nurse after you are discharged. FOLLOW UP VISIT: It is important for you to keep your follow up appointments with your medical provider. Keep any scheduled doctor appointments. Prescriptions: New oxycodone-acetaminophen [Percocet] 5-325 mg Tablet 1 tab PO Q4H PRN (Reason: pain) Qty: 30 RF: 0 Continue furosemide 40 mg tablet 40 mg PO Q2D RF: 0 atorvastatin 80 mg tablet 80 mg PO HS RF: 0 aspirin 81 mg Tablet,Delayed Release (Dr/Ec) 81 mg PO QAM RF: 0 zolpidem 10 mg tablet 10 mg PO HS RF: 0 albuterol sulfate 90 mcg/actuation HFA aerosol inhaler 2 puff Inhalation Q4 PRN (Reason: Shortness Of Breath) RF: 0 terazosin 10 mg capsule 10 mg PO QAM RF: 0 lisinopril 10 mg tablet 10 mg PO QAM RF: 0 metoprolol tartrate 25 mg Tablet 0.5 tab PO BID RF: 0 budesonide-formoterol [Symbicort] 160-4.5 mcg/actuation Hfa Aerosol Inhaler 2 puff INHALATION BID RF: 0 Stand-Alone Forms: [facility]Less/Other Patient Handouts: Oxycodone Hydrochloride Acetaminophen Oral tablet Discharge Orders: Discharge Order (Routine); Ordered 09/24/18 Ordered By: Beny Mijares Admission Data Admit Date/Time: 09/21/18 11:43 Attending Provider: Beny Mijares Admit Provider: Beny Mijares Primary Care Provider: Abelardo Kenney. Service: Medical Other Interventions: Discharge Summary Assessment (RN) Last Done: 09/24/18 11:26 DC Date/Time DO NOT enter until pt leaves facility: 09/24/18 12:58
== END 2018-09-24 12:58 | disposition home or self-care (01) | DRG 220 ==
LOC: ASU 11:24 → 1E 11:43 → 3W 09-23 12:27
PROC: M.TEVAR (2018-09-21 13:10)
DX: I25.2 Old myocardial infarction; M19.90 Unspecified osteoarthritis, unspecified site; Z79.899 Other long term (current) drug therapy; E66.9 Obesity, unspecified; D69.6 Thrombocytopenia, unspecified; I50.30 Unspecified diastolic (congestive) heart failure; D62 Acute posthemorrhagic anemia; Z68.30 Body mass index [BMI] 30.0-30.9, adult; Z95.1 Presence of aortocoronary bypass graft; Z79.51 Long term (current) use of inhaled steroids; Y83.8 Other surgical procedures as the cause of abnormal reaction of the patient, or of later complication, without mention of misadventure at the time of the procedure; I97.51 Accidental puncture and laceration of a circulatory system organ or structure during a circulatory system procedure; Z79.82 Long term (current) use of aspirin; J44.9 Chronic obstructive pulmonary disease, unspecified; I11.0 Hypertensive heart disease with heart failure; Z87.891 Personal history of nicotine dependence; N40.0 Benign prostatic hyperplasia without lower urinary tract symptoms; I71.2 Thoracic aortic aneurysm, without rupture; Y71.3 Surgical instruments, materials and cardiovascular devices (including sutures) associated with adverse incidents; E78.5 Hyperlipidemia, unspecified; Y92.234 Operating room of hospital as the place of occurrence of the external cause; I25.10 Atherosclerotic heart disease of native coronary artery without angina pectoris

== ENCOUNTER 2019-05-31 18:53 | Inpatient (IN) ==
[2019-05-31] MEDS: DEXAMETHASONE **PF** INJ 10 MG/ML VIAL IV ONE ×2 (19:33→19:34)
[2019-05-31 19:38] LABS: Basophils # (auto) 0.03 K/uL (0-0.2); Basophils % (auto) 0.5 %; Eosinophils # (auto) 0.21 K/uL (0-0.5); Eosinophils % (auto) 3.4 %; Hematocrit (blood only) 37.4 % (42-52); Hemoglobin 12.1 g/dL (14.0-18.0); Immature Granulocytes # (auto) 0.01 K/uL (0.00-0.02); Immature Granulocytes % (auto) 0.2 %; Lymphocytes # (auto) 1.17 K/uL (1.2-3.4); Lymphocytes % (auto) 19.2 %; Mean Corpuscular Hemoglobin 29.7 pg (25-34); Mean Corpuscular Hgb Conc 32.4 g/dL (32-36); Mean Corpuscular Volume 91.9 fL (80-100); Mean Platelet Volume 9.7 fL (7.4-10.4); Monocytes # (auto) 0.41 K/uL (0.11-0.59); Monocytes % (auto) 6.7 %; Neutrophils # (auto) 4.26 K/uL (1.4-6.5); Platelet Count 109 K/uL (130-400); RDW Coefficient of Variation 15.1 % (11.5-14.5); RDW Standard Deviation 50.9 fL (36.4-46.3); Red Blood Count 4.07 M/uL (4.7-6.1); White Blood Count 6.09 K/uL (4.8-10.8)
[2019-05-31 19:56] LABS: Albumin Level 3.6 gm/dl (3.4-5.0); BUN Creatinine Ratio 17.3 (10-20); Calcium 8.5 mg/dl (8.5-10.1); Creatinine Clr Calc Pharmacy 47.8 ml/min; Est GFR (African American) 62.2; Est GFR (Non-African American) 53.7; Magnesium 2.1 mg/dl (1.8-2.4); Potassium 3.6 mmol/L (3.5-5.1)
[2019-05-31 20:07] LABS: Bilirubin,Total 0.6 mg/dl (0.2-1); Globulin 3.7 gm/dl (2.5-4.0); Thyroid Stimulating Hormone 4.76 uIu/ml (0.300-4.500); Total Protein 7.3 gm/dl (6.4-8.2)
[2019-05-31 20:20] LABS: T4 Free Thyroxine 0.99 ng/dl (0.8-1.6)
--- NOTE | 2019-05-31 20:38 | Emergency Department Note ---
Entered by Apoorva Hickman acting as a scribe for History of Present Illness General Chief complaint: Neck Injury/Pain Stated complaint: SWELLING IN NECK Time Seen by Provider: 05/31/19 19:00 Source: patient and RN notes reviewed Mode of arrival: EMS History of Present Illness Onset (ago): week(s) 3 Location: neck Pain Consistency: + other (Worsening) Quality: + other (Neck pain) Associated symptoms: + other (Positive neck pain, numbness. Negative fall, trauma, congestion.); no cough, no fever/chills and no shortness of breath Treatments prior to arrival: other (MRI) The patient is a 89 year old male who presents to the Emergency Department via EMS complaining of worsening neck pain starting 3 weeks ago. The patient reports that his neck hurts. He states that he is losing strength in his arms. He explains that he can not lift his left arm and that it feels slightly numb. He notes that he has neuropathy in his legs and that this is worsening. He adds that he received an MRI [employer] for his symptoms. The patients nurse reports that the patient an MRI [employer]. She states that the MRI showed stenosis and potential edema to the patients spinal cord. She explains that the patient was called and told to come to the ED because of this MRI. The patient denies recent falls or trauma, fevers, chills, cough, congestion and shortness of breath. Home Medications Home Medications Medication Instructions Recorded Confirmed Type aspirin 81 mg PO QAM 05/19/18 05/31/19 History atorvastatin 80 mg PO HS 05/19/18 05/31/19 History furosemide 40 mg PO QAM 05/19/18 05/31/19 History zolpidem 10 mg PO HS 05/19/18 05/31/19 History lisinopril 10 mg PO QAM 06/09/18 05/31/19 History metoprolol tartrate 12.5 tab PO BID 06/24/18 05/31/19 History Symbicort 2 puff INHALATION BID 09/07/18 05/31/19 History albuterol sulfate [ProAir HFA] 2 puff INHALATION Q4H PRN 05/31/19 05/31/19 History terazosin 10 mg PO QAM 05/31/19 05/31/19 History Allergies Allergy/AdvReac Type Severity Reaction Status Date / Time No Known Allergies Allergy Verified 05/31/19 19:31 Past Med/Surg History Medical History CHF (congestive heart failure) (Resolved) DIASTOLIC- NO RECENT ISSUES 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) Hx of deep venous thrombosis (Resolved) 10 YEARS AGO WHEN DX WITH LEUKEMIA Myocardial infarction (Resolved) S/P CABG X3 (2014) AT [place] Thoracic aortic aneurysm (Resolved) REASON FOR PROCEDURE= 6.5CM* Peripheral neuropathy Surgical History History of cataract surgery (Resolved) LEFT History of tonsillectomy (Resolved) History of tooth extraction (Resolved) History of total right hip arthroplasty (Resolved) Hx of colonoscopy (Resolved) Hx of transurethral resection of prostate (Resolved) S/P thoracic aortic aneurysm repair (Resolved) Family History Other No pertinent family history Social History Preferred Language: Latvian Communication Ability: Effective Risk Control Consultant Required: No Beliefs That Will Affect Care: None Current Living Situation: Spouse Feels Safe at Home: Yes Smoking Status: Former smoker Tobacco Type: cigarettes ; Cigarettes Per Day: QUIT 40 YRS AGO; "LIGHT USE" PRIOR TO QUITTING ; Second Hand Exposure: No ; Hx Alcohol Use: Yes Alcohol type: wine Hx Substance Use: No Review of Systems See HPI for pertinent positives & negatives. and A total of 10 systems reviewed and were otherwise negative Physical Exam Vital Signs Vital Signs - 24 hr 05/31/19 18:56 05/31/19 18:59 05/31/19 19:15 Temperature 36.6 C Temperature Source Oral Sepsis Recent Fever Within 48 Hours No Sepsis New/Unexplained Change in Mental Status No Sepsis Action Taken by Nursing No Action Required Pulse Rate 52 L 69 Pulse Rate from SpO2 Sensor Pulse Rhythm Regular Pulse Strength Normal Respiratory Rate 17 16 Respiratory Effort / Characteristics Non-Labored Spontaneous Respiratory Depth Normal Respiratory Pattern Regular Blood Pressure 160/84 H 160/84 H Blood Pressure Mean 109 109 Blood Pressure Position Lying Pulse Oximetry 95 95 Oxygen Delivery Method Room Air Room Air 05/31/19 19:28 05/31/19 19:30 05/31/19 20:00 Temperature Temperature Source Sepsis Recent Fever Within 48 Hours Sepsis New/Unexplained Change in Mental Status Sepsis Action Taken by Nursing Pulse Rate 52 L 51 L 62 Pulse Rate from SpO2 Sensor Pulse Rhythm Pulse Strength Respiratory Rate 17 10 L 15 Respiratory Effort / Characteristics Respiratory Depth Respiratory Pattern Blood Pressure Blood Pressure Mean Blood Pressure Position Pulse Oximetry Oxygen Delivery Method 05/31/19 20:30 05/31/19 20:46 05/31/19 21:00 Temperature Temperature Source Sepsis Recent Fever Within 48 Hours Sepsis New/Unexplained Change in Mental Status Sepsis Action Taken by Nursing Pulse Rate 54 L 55 L 56 L Pulse Rate from SpO2 Sensor 53 L 57 L Pulse Rhythm Pulse Strength Respiratory Rate 14 16 14 Respiratory Effort / Characteristics Respiratory Depth Respiratory Pattern Blood Pressure 170/87 H 172/98 H Blood Pressure Mean 114 122 Blood Pressure Position Pulse Oximetry 97 95 Oxygen Delivery Method Room Air Room Air 05/31/19 21:01 Temperature Temperature Source Sepsis Recent Fever Within 48 Hours Sepsis New/Unexplained Change in Mental Status Sepsis Action Taken by Nursing Pulse Rate 61 Pulse Rate from SpO2 Sensor 47 L Pulse Rhythm Pulse Strength Respiratory Rate 12 Respiratory Effort / Characteristics Respiratory Depth Respiratory Pattern Blood Pressure Blood Pressure Mean Blood Pressure Position Pulse Oximetry 96 Oxygen Delivery Method Room Air GENERAL: Patient is in no acute distress. HEENT: No acute trauma, normocephalic atraumatic, mucous membranes moist, no nasal congestion, no scleral icterus. NECK: No stridor, no adenopathy, no meningismus, trachea is midline. LUNGS: Clear to auscultation bilaterally, no wheeze, no rhonchi, breath sounds equal. HEART: 2/6 systolic murmur. Regular rate and rhythm. ABDOMEN: Soft, nontender, bowel sounds positive, no hernias, no peritonitis. EXTREMITIES: No cyanosis. Full range of motion of all the joints without pain or difficulty, no signs for acute trauma. RLE edema. Mild in severity. NEUROLOGIC: Awake and alert. Can move all extremities. Strength is intact in lower extremities bilaterally. Rehab Specialist strength is equal and strong in upper extremities. Proximal arm strength is poor, especially on the left. SKIN: No rash, no jaundice, no diaphoresis. Course 190: The patient was evaluated in room A4A, and a complete history and physical examination were performed. 191: EMR reviewed. The patient had a lumbar spine MRI today. Found to have mo derate spinal stenosis at L2 to L3 and moderate to severe stenosis at L3 to L4. MRI of C Spine without Contrast showed central canal stenosis at C4-C5 with compression of the spinal cord and cord edema. There were other levels of stenosis but nothing as severe as C4-C5. 1928: I discussed the patients case with Dr. Juan Spinal surgery. He recommends to give the patient 10 mg Decadron IV now and to admit the patient. 173: I discussed the patients case with Dr. Micki ORTIZ hospitalist. He will evaluate the patient for further management. 1952: I updated the patient at this time. He states that he is okay with coming into the hospital. Consultations Consultation #1: I discussed the patients case with Dr. Juan Spinal surgery. He recommends to give the patient 10 mg Decadron IV now and to admit the patient. Time: 19:28 Consultation #2: I discussed the patients case with Dr. Micki ORTIZ hospitalist. He will evaluate the patient for further management. Time: 17:34 Administered Medications Discontinued Medications Dexamethasone Sodium Phosphate (Decadron Pf) 10 mg IV NOW ONE Stop: 05/31/19 19:22 Last Admin: 05/31/19 19:34 Dose: Not Given Documented by: [id number] Admin: 05/31/19 19:33 Dose: 10 mg Documented by: [id number] Medical Decision Making Differential Diagnosis Differentials include cord compression, spinal stenosis, edema, neuropathy, electrolyte imbalance, anemia, nerve impingement and disc disease amongst others. Medical Records Attestation: I reviewed the patient's medical records. Home Medications Current Medication List: was personally reviewed by me Laboratory Data Attestation: I reviewed the patient's lab results. Result diagrams: 05/31/19 19:25 05/31/19 19:25 Lab Results 05/31/19 05/31/19 Range/Units 19:25 19:25 WBC 6.09 (4.8-10.8) K/uL RBC 4.07 L (4.7-6.1) M/uL Hgb 12.1 L (14.0-18.0) g/dL Hct 37.4 L (42-52) % MCV 91.9 (80-100) fL MCH 29.7 (25-34) pg MCHC 32.4 (32-36) g/dL RDW Std Deviation 50.9 H (36.4-46.3) fL RDW Coeff of Jes 15.1 H (11.5-14.5) % Plt Count 109 L (130-400) K/uL MPV 9.7 (7.4-10.4) fL Immature Gran % (Auto) 0.2 % Neut % (Auto) 70.0 % Lymph % (Auto) 19.2 % [place] % (Auto) 6.7 % Eos % (Auto) 3.4 % Baso % (Auto) 0.5 % Immature Gran # (Auto) 0.01 (0.00-0.02) K/uL Neut # (Auto) 4.26 (1.4-6.5) K/uL Lymph # (Auto) 1.17 L (1.2-3.4) K/uL [place] # (Auto) 0.41 (0.11-0.59) K/uL Eos # (Auto) 0.21 (0-0.5) K/uL Baso # (Auto) 0.03 (0-0.2) K/uL Sodium 144 (136-145) mmol/L Potassium 3.6 (3.5-5.1) mmol/L Chloride 109 H (98-107) mmol/L Carbon Dioxide 29 (21-32) mmol/L Anion Gap 6.0 (3-11) BUN 21 H (7-18) mg/dl Creatinine 1.20 (0.6-1.4) mg/dl Est Cr Clr Drug Dosing 47.8 ml/min Est GFR ( Amer) 62.2 Est GFR (Non-Af Amer) 53.7 BUN/Creatinine Ratio 17.3 (10-20) Glucose 73 (70-99) mg/dl Calcium 8.5 (8.5-10.1) mg/dl Magnesium 2.1 (1.8-2.4) mg/dl Total Bilirubin 0.6 (0.2-1) mg/dl AST 35 (15-37) U/L ALT 35 (12-78) U/L Alkaline Phosphatase 70 (45-117) U/L Total Protein 7.3 (6.4-8.2) gm/dl Albumin 3.6 (3.4-5.0) gm/dl Globulin 3.7 (2.5-4.0) gm/dl Albumin/Globulin Ratio 1.0 (0.9-2) TSH 4.760 H (0.300-4.500) uIu/ml Free T4 0.99 (0.8-1.6) ng/dl ECG Data Attestation: I personally reviewed and interpreted this ECG as follows: Indication: other (atrial fibrillation) Rate (beats per minute): 54 Rhythm: atrial fibrillation Findings: + other (Old inferior and anterior infarct. QTC 415. ); no ST elevation Comparison ECG Date: from (10/26/18) Change: no significant change Blood Pressure Blood Pressure Findings: Elevated blood pressure Blood Pressure Disposition: further management by hospitalist MDM Narrative There is no leukocytosis. No concerning anemia. Platelet count was slightly low at 109. No significant electrolyte abnormality or kidney failure. No worrisome liver enzyme elevation. TSH was slightly high however, the T4 was normal. I was able to review the MRI results from earlier today. There was lumbar spinal stenosis. There was stenosis in the cervical spine with cord impingement and cord edema. I think the findings on MRI explain the upper extremity weakness. I spoke to the on-call spinal surgeon. He recommended a hospital stay and IV steroids. The patient received IV Decadron, 10 mg. I spoke to the patient, I spoke with the case consultant. The on-call hospitalist has been consulted. Patient will likely require a neurosurgical procedure given his findings. Hospitalization is warranted. Impression & Plan Cervical spinal cord compression, Upper extremity weakness Discharge Plan Visit Data Chief Complaint: Neck Injury/Pain Stated Complaint: SWELLING IN NECK ED Provider: Branden Finch Discharge Problem: Cervical spinal cord compression, Upper extremity weakness Patient Disposition: Being Evaluated by Hospitalist Forms Stand Alone Forms: My [facility] Prescriptions Prescriptions: No Action terazosin 10 mg capsule 10 mg PO QAM RF: 0 albuterol sulfate [ProAir HFA] 90 mcg/actuation HFA aerosol inhaler 2 puff inhalation Q4H PRN (Reason: Shortness Of Breath) RF: 0 furosemide 40 mg tablet 40 mg PO QAM RF: 0 atorvastatin 80 mg tablet 80 mg PO HS RF: 0 aspirin 81 mg Tablet,Delayed Release (Dr/Ec) 81 mg PO QAM RF: 0 zolpidem 10 mg tablet 10 mg PO HS RF: 0 lisinopril 10 mg tablet 10 mg PO QAM RF: 0 metoprolol tartrate 25 mg Tablet 12.5 tab PO BID RF: 0 Symbicort 160-4.5 mcg/actuation Hfa Aerosol Inhaler 2 puff INHALATION BID RF: 0 Referrals Referrals: Abelardo Kenney MD [Primary Care Provider] - The scribe's documentation has been prepared under my direction and personally reviewed by me in its entirety. I confirm that the note above accurately reflects all work, treatment, procedures, and medical decision making performed by me.
--- NOTE | 2019-05-31 21:38 | History & Physical Report ---
Date of Service May 31, 2019 Assessment & Plan (1) Cervical spinal cord compression: - C and L spine MRIs completed - Spine surgeons to evaluate for operation after medical optimization - loaded with 10 mg Decadron, continuing with 4 mg Q6 (2) Paroxysmal atrial fibrillation: - rate controlled with home medications - taken off anticoagulation years ago due to continuous bleeding episodes while on Xarelto - SCDs and TEDs ordered for DVT prophylaxis; - pt has hx of DVT -- will likely need to start anticoagulation as soon as possible after surgery (3) Essential hypertension: continued home lisinopril and metoprolol (4) Coronary artery disease: - hx CABG - currently on aspirin (5) CHF (congestive heart failure): - holding lasix prior to surgery - Dr. Mauricio to see patient and decide cardiac clearance for surgery History of Present Illness Chief Complaint: weakness in upper extremities Primary Care Provider: Abelardo Kenney MD Mr. Salazar is a pleasant 89 yo M with extensive PMH including hairy cell leukemia, paroxysmal afib, thrombocytopenia, gerd, BPH, CAD and CABG, who presented to the ED for upper extremity weakness for the past few weeks. He says the weakness started about 3 weeks ago with having general fatigue in lifting his arms above his head but steadily worsened to the point where he was having issues lifting his arms high enough to brush his hair. He attests to feelings of numbness and tingling in both hands with it being worse more prominent in the left. He also attests to recently losing his sense of balance in his feet. He is unable to stand for periods of time because his feet feel like cotton and he is unsure of where he is putting them. He denies any pain, headache, blurring or changing of vision. C-spine MRI in the ED notable for "C3-C4: There is marked disc space narrowing with posterior disc osteophyte complex. This indents the ventral aspect of the cord. There is severe central canal narrowing. Severe left and moderate to severe right neural foraminal narrowing is noted. C4-C5: There is disc space narrowing with posterior disc osteophyte complex and ligamentous hypertrophy that result in severe central canal narrowing with associated cord edema. Severe bilateral neural foraminal stenosis is noted due to facet arthrosis and uncovertebral hypertrophy." Allergies Allergy/AdvReac Type Severity Reaction Status Date / Time No Known Allergies Allergy Verified 05/31/19 19:31 Home Medications Home Medications Medication Instructions Recorded Confirmed Type aspirin 81 mg PO QAM 05/19/18 05/31/19 History atorvastatin 80 mg PO HS 05/19/18 05/31/19 History furosemide 40 mg PO QAM 05/19/18 05/31/19 History zolpidem 10 mg PO HS 05/19/18 05/31/19 History lisinopril 10 mg PO QAM 06/09/18 05/31/19 History metoprolol tartrate 12.5 tab PO BID 06/24/18 05/31/19 History Symbicort 2 puff INHALATION BID 09/07/18 05/31/19 History albuterol sulfate [ProAir HFA] 2 puff INHALATION Q4H PRN 05/31/19 05/31/19 History terazosin 10 mg PO QAM 05/31/19 05/31/19 History Past Med/Surg History Medical History CHF (congestive heart failure) (Resolved) DIASTOLIC- NO RECENT ISSUES 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) Hx of deep venous thrombosis (Resolved) 10 YEARS AGO WHEN DX WITH LEUKEMIA Myocardial infarction (Resolved) S/P CABG X3 (2014) AT [place] Thoracic aortic aneurysm (Resolved) REASON FOR PROCEDURE= 6.5CM* Peripheral neuropathy Surgical History History of cataract surgery (Resolved) LEFT History of tonsillectomy (Resolved) History of tooth extraction (Resolved) History of total right hip arthroplasty (Resolved) Hx of colonoscopy (Resolved) Hx of transurethral resection of prostate (Resolved) S/P thoracic aortic aneurysm repair (Resolved) Family History Other No pertinent family history Social History Preferred Language: Estonian Communication Ability: Effective Drying Room Operator Required: No Beliefs That Will Affect Care: None Current Living Situation: Spouse and Personal Care Facility Other Information That Helps Us Care for You: Yes (cabg and aa stent 1 year ago) Feels Safe at Home: Yes Safety Concerns: Feels Safe At This Time Smoking Status: Former smoker Tobacco Type: cigarettes ; Cigarettes Per Day: QUIT 40 YRS AGO; "LIGHT USE" PRIOR TO QUITTING ; Do You Dip or Chew Tobacco: No ; Smoking End Date: 50 yr ago ; Second Hand Exposure: No ; Hx Alcohol Use: Yes Alcohol type: wine Hx Substance Use: No Review of Systems Constitutional: no fever, no chills, no body aches and no weakness Eyes: no blind spots, no eye pain, no photophobia and no worsening vision Respiratory: no cough, no dyspnea and no pain with cough Cardiovascular: + edema; no chest pain and no palpitations Gastrointestinal: no abdominal pain, no nausea, no vomiting, no constipation and no diarrhea/loose stools Musculoskeletal: + muscle weakness (bilateral upper extremity); no neck pain, no joint pain and no stiffness Physical Exam Constitutional: well developed, well nourished, + obese, cooperative and comfortable Respiratory: normal respiratory effort and able to speak in complete sentences; no respiratory distress, no labored breathing and no cough Auscultation: lungs clear to auscultation bilaterally; no crackles, no rales, no rhonchi and no wheezes Cardiovascular: Rate/Rhythm: regular rate and + irregularly irregular Heart Sounds: no abnormal opening sounds, no click, no gallop and no murmur Palpation: + heave Extremities: + edema (right lower extremity); no calf tenderness Gastrointestinal (Abdomen): Inspection/Auscultation: + abdomen distended and normal bowel sounds Percussion/Palpation: abdomen soft; abdomen nontender Neurologic: Unable to lift upper extremities up, elbows remain by chest wall. Able to shrug both shoulders equally against resistance. Strength in both hands equal for alley worker, pushing and pulling. Sensation intact throughout dermatomes of arms bilaterally including axillary nerve. Able to flex and extend wrists slowly with concentration, has trouble with wrist circumflexion. Adduction of fingers against force stronger than abduction against force bilaterally. Able to extend neck laterally to both sides without pain or restriction. Results & Data Vital Signs (Past 12 Hours) Vital Signs Temp Pulse Resp BP Pulse Ox 05/31/19 21:01 61 12 96 05/31/19 21:00 56 L 14 172/98 H 95 05/31/19 20:46 55 L 16 170/87 H 97 05/31/19 20:30 54 L 14 05/31/19 20:00 62 15 05/31/19 19:30 51 L 10 L 05/31/19 19:28 52 L 17 05/31/19 19:15 95 05/31/19 18:59 36.6 C 69 16 160/84 H 95 05/31/19 18:56 52 L 17 160/84 H Code Status & VTE Plan VTE Prophylaxis Plan VTE Prophylaxis will be ordered: Yes Supervising Physician Co-Signing Physician Notes Patient was seen and examined by me personally. I reviewed the chart, the orders and discussed the case in detail with Dr. Jayne Malhotra MD . I read this H&P and agree with its contents to entirety. PG Care Time/CCT Total # of Minutes Spent Total Time Spent with Patient: Total time spent is greater than 50% in coordination of care (as documented) at patient's floor/unit and/or counseling patient: Resident Activity Tracking Resident Involvement: Resident Care Provided Care Provided: Adult Hospital Medicine
[2019-05-31] MEDS ORDERED: MoRPHine SULFATE 2 MG/ML CARP IV PRN (22:55)
[2019-05-31] MEDS ORDERED: ONDANSETRON INJ 2 MG/ML 2 ML VIAL IV PRN (22:55)
[2019-05-31] MEDS ORDERED: HydrALAZINE HCL 20 MG/ML VIAL IV PRN (22:55)
[2019-05-31] MEDS ORDERED: MoRPHine SULFATE 4 MG/ML 1 ML CARP\\VIAL IV PRN (22:55)
[2019-05-31] MEDS ORDERED: ACETAMINOPHEN 325 MG TAB PO PRN (22:55)
[2019-06-01] MEDS: DEXAMETHASONE SOD PHOSPHATE 4 MG in SYRINGE 0 ML IV SCH ×3 (01:17→22:33)
[2019-06-01] MEDS: BUDESONIDE/FORMOTEROL FUMARATE 160/4.5 60 PUFFS/INHALER INH SCH ×3 (01:18→21:59)
[2019-06-01] MEDS: ZOLPIDEM TARTRATE 10 MG TAB PO SCH ×2 (01:24→21:58)
[2019-06-01] MEDS ORDERED: ZOLPIDEM TARTRATE 10 MG TAB PO ONE (01:24)
[2019-06-01 06:59] LABS: Hemoglobin 12.1 g/dL (14.0-18.0); Mean Corpuscular Hemoglobin 29.4 pg (25-34); Mean Corpuscular Hgb Conc 32.7 g/dL (32-36); Mean Corpuscular Volume 89.8 fL (80-100); RDW Coefficient of Variation 15.1 % (11.5-14.5); RDW Standard Deviation 49.7 fL (36.4-46.3); Red Blood Count 4.12 M/uL (4.7-6.1); White Blood Count 4.92 K/uL (4.8-10.8)
[2019-06-01 07:22] LABS: Mean Platelet Volume 9.5 fL (7.4-10.4); Platelet Count 98 K/uL (130-400); Platelet Estimate Decreased (Normal)
--- NOTE | 2019-06-01 07:29 | XRay Report ---
XR chest 2V routine HISTORY: pre-surgical COMPARISON: Chest 10/26/2018. FINDINGS: The heart remains mildly enlarged. There are poststernotomy changes. A descending thoracic aortic stent remains unchanged. A few bibasilar linear densities favor scarring or subsegmental atele ctasis. Otherwise, the lungs are clear. No pleural effusions. No pneumothorax. IMPRESSION: 1. Stable mild cardiomegaly. 2. A few bibasilar linear densities favor scarring or subsegmental atelectasis. Electronically signed by: Manjinder Easley M.D. 06/01/2019 7:28 AM
[2019-06-01 07:36] LABS: BUN Creatinine Ratio 21.3 (10-20); Calcium 8.6 mg/dl (8.5-10.1); Creatinine Clr Calc Pharmacy 49.8 ml/min; Est GFR (African American) 66.2; Est GFR (Non-African American) 57.1; Potassium 3.5 mmol/L (3.5-5.1)
--- NOTE | 2019-06-01 08:07 | Orthopedic Consultation ---
Date of Consultation June 01, 2019 Assessment & Plan (1) Cervical spinal cord compression: Long discussion with this patient regarding his physical presentation clinical course and MRI findings. He does have evidence of significant canal compromise between C3-C5. There is evidence of significant cord edema on his MRI. This would be consistent with his presentation. Recommending emergent anterior cervical corpectomy of C4 to adequately decompress the spinal canal and preserve neurologic function. Risk benefits pros cons and alternatives were outlined in detail. Risks include but not limited to from anesthesia blindness stroke paralysis nerve damage blood loss current transfusion infection requiring reoperation dysphonia dysphagia. Benefits hopefully be maintenance of his neurologic status and hopefully improvement. Present on Admission?: Yes History of Present Illness Reason for Consultation: Bilateral arm weakness Attending Physician: Austin Hooks MD History of Present Illness This is an 89-year-old male that states he is noticed a marked increase in numbness and tingling of the bilateral upper extremities over the past week. He denies any significant trauma fall or event. He is also noted over the past 48 hours significant strength deficits. He was been unable to lift the fork to his mouth yesterday. He had undergone an emergent MRI of the cervical and lumbar spine and was sent to the emergency room with its findings. He also notes significant balance disturbance. He went from using a cane to walker now in a wheelchair. He denies any gross Lhermitte's phenomenon today. He denies any cervicalgia. Allergies Allergy/AdvReac Type Severity Reaction Status Date / Time No Known Allergies Allergy Verified 05/31/19 19:31 Home Medications Home Medications Medication Instructions Recorded Confirmed Type aspirin 81 mg PO QAM 05/19/18 05/31/19 History atorvastatin 80 mg PO HS 05/19/18 05/31/19 History furosemide 40 mg PO QAM 05/19/18 05/31/19 History zolpidem 10 mg PO HS 05/19/18 05/31/19 History lisinopril 10 mg PO QAM 06/09/18 05/31/19 History metoprolol tartrate 12.5 tab PO BID 06/24/18 05/31/19 History Symbicort 2 puff INHALATION BID 09/07/18 05/31/19 History albuterol sulfate [ProAir HFA] 2 puff INHALATION Q4H PRN 10/02/19 10/02/19 History terazosin 10 mg PO QAM 05/31/19 05/31/19 History Patient History Medical History CHF (congestive heart failure) (Resolved) DIASTOLIC- NO RECENT ISSUES 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) Hx of deep venous thrombosis (Resolved) 10 YEARS AGO WHEN DX WITH LEUKEMIA Myocardial infarction (Resolved) S/P CABG X3 (2014) AT [place] Thoracic aortic aneurysm (Resolved) REASON FOR PROCEDURE= 6.5CM* Peripheral neuropathy Surgical History History of cataract surgery (Resolved) LEFT History of tonsillectomy (Resolved) History of tooth extraction (Resolved) History of total right hip arthroplasty (Resolved) Hx of colonoscopy (Resolved) Hx of transurethral resection of prostate (Resolved) S/P thoracic aortic aneurysm repair (Resolved) Family History Other No pertinent family history Social History Preferred Language: Spanish Communication Ability: Effective Dredge Master Required: No Beliefs That Will Affect Care: None Current Living Situation: Spouse and Personal Care Facility Other Information That Helps Us Care for You: Yes (cabg and aa stent 1 year ago) Feels Safe at Home: Yes Safety Concerns: Feels Safe At This Time Smoking Status: Former smoker Tobacco Type: cigarettes ; Cigarettes Per Day: QUIT 40 YRS AGO; "LIGHT USE" PRIOR TO QUITTING ; Do You Dip or Chew Tobacco: No ; Smoking End Date: 50 yr ago ; Second Hand Exposure: No ; Hx Alcohol Use: Yes Alcohol type: wine Hx Substance Use: No Physical Exam Physical Exam: On exam patient demonstrates profound strength deficits to bilateral deltoids and biceps. Triceps are 4+/5 his grasp is a 5 or 5 bilaterally. I am unable to elicit Larissa sign. He has poor sensory to the lower extremities but does have a history of peripheral neuropathy. He has reasonable cervical flexion extension. Results & Data Vital Signs (Past 12 Hours) Vital Signs Temp Pulse Pulse Resp BP BP BP 06/01/19 07:00 36.5 C 81 18 147/90 H 06/01/19 04:54 36.6 C 74 16 203/106 H 05/31/19 22:56 36.5 C 74 14 202/100 H 05/31/19 22:15 66 18 142/92 H 05/31/19 21:01 61 12 05/31/19 21:00 56 L 14 172/98 H 05/31/19 20:46 55 L 16 170/87 H 05/31/19 20:30 54 L 14 Pulse Ox 06/01/19 07:00 95 06/01/19 04:54 96 05/31/19 22:56 95 05/31/19 22:15 99 05/31/19 21:01 96 05/31/19 21:00 95 05/31/19 20:46 97 05/31/19 20:30
[2019-06-01] MEDS: ASPIRIN 81 MG ECTAB PO SCH (08:16)
[2019-06-01] MEDS: TERAZOSIN HCL 5 MG CAP PO SCH (08:17)
[2019-06-01] MEDS: METOPROLOL TARTRATE 25 MG TAB PO SCH ×2 (08:17→21:58)
[2019-06-01] MEDS: FAMOTIDINE 20 MG TAB PO SCH ×2 (08:18→21:59)
[2019-06-01] MEDS: lisinopriL 10 MG TAB PO SCH (08:19)
[2019-06-01] MEDS ORDERED: INFLUENZA ADMINISTRATION CHARGE ONE (09:00)
[2019-06-01] MEDS ORDERED: INFLUENZA VIRUS QUAD VACCINE 0.5 ML SYR IM ONE (09:00)
[2019-06-01] MEDS ORDERED: ROCURONIUM BROMIDE 10 MG/ML 5 ML VIAL ONE ×3 (09:46→14:21)
[2019-06-01] MEDS ORDERED: NEOSTIGMINE METHYLSULFATE 1 MG/ML 10ML VIAL ONE (09:46)
[2019-06-01] MEDS ORDERED: fentaNYL citrate 100 MCG/2 ML VIAL ONE ×4 (09:46→13:19)
[2019-06-01] MEDS ORDERED: LIDOCAINE HCL 2% 2 ML VIAL/AMP(20MG/ML) INFIL ONE (09:46)
[2019-06-01] MEDS ORDERED: DEXAMETHASONE SOD INJ 4 MG/ML VIAL ONE (09:46)
[2019-06-01] MEDS ORDERED: ONDANSETRON INJ 2 MG/ML 2 ML VIAL ONE (09:46)
[2019-06-01] MEDS ORDERED: GLYCOPYRROLATE 0.2 MG/ML VIAL ONE (09:46)
[2019-06-01] MEDS ORDERED: PROPOFOL IV EMULSION 10 MG/ML 20 ML VIAL IV ONE (09:46)
--- NOTE | 2019-06-01 09:58 | Anesthesiology Consultation ---
Date of Service June 01, 2019 Assessment & Plan (1) Encounter for pre-operative examination: Chart Review Chart Review: Acceptable Risk for Surgery and Patient NOT seen in Pre Admission Testing Consults Requested cardiac ASA ASA4E History Surgery Operation Date: 06/01/19 12:00 Proposed Procedures p C4 Cervical Corpectomy - Michael Juan DO Height/Weight Height: 5 ft 9 in Weight: 90.5 kg Allergies Allergy/AdvReac Type Severity Reaction Status Date / Time No Known Allergies Allergy Verified 05/31/19 19:31 Medications Home Medications Medication Instructions Recorded Confirmed Last Taken aspirin 81 mg PO QAM 05/19/18 05/31/19 10/26/18 atorvastatin 80 mg PO HS 05/19/18 05/31/19 09/20/18 23:00 furosemide 40 mg PO QAM 05/19/18 05/31/19 10/26/18 zolpidem 10 mg PO HS 05/19/18 05/31/19 09/20/18 23:00 lisinopril 10 mg PO QAM 06/09/18 05/31/19 10/26/18 metoprolol tartrate 12.5 tab PO BID 06/24/18 05/31/19 10/26/18 Symbicort 2 puff INHALATION BID 09/07/18 05/31/19 10/26/18 albuterol sulfate [ProAir HFA] 2 puff INHALATION Q4H PRN 05/31/19 05/31/19 Unknown terazosin 10 mg PO QAM 05/31/19 05/31/19 Unknown Active Medications Generic Name Dose Route Start Last Admin Trade Name Freq PRN Reason Stop Dose Admin Aspirin 81 mg 06/01/19 09:00 06/01/19 08:16 Ecotrin Ectab PO 07/01/19 08:59 81 mg QAM JENNY Administration Budesonide/Formoterol Fumarate 2 puffs 05/31/19 23:30 06/01/19 08:18 Symbicort 160mcg/4.5mcg INH 06/30/19 23:29 2 puffs BID JENNY Administration Famotidine 20 mg 06/01/19 09:00 06/01/19 08:18 Pepcid PO 07/01/19 08:59 20 mg BID JENNY Administration Hydralazine HCl 10 mg 05/31/19 22:55 06/01/19 04:15 Hydralazine Hcl IV 06/30/19 22:54 10 mg Q4H PRN Administration Systolic BP > 160 or diastolic >95 Dexamethasone Sodium Phosphate 1 mls @ 1 mls/min 06/01/19 01:30 06/01/19 08:16 4 mg/ Syringe IV 07/01/19 01:29 1 mls/min Q6H JENNY Administration Lisinopril 10 mg 06/01/19 09:00 06/01/19 08:19 Zestril PO 07/01/19 08:59 10 mg QAM JENNY Administration Metoprolol Tartrate 12.5 mg 06/01/19 09:00 06/01/19 08:17 Lopressor PO 07/01/19 08:59 12.5 mg BID JENNY Administration Terazosin HCl 10 mg 06/01/19 09:00 06/01/19 08:17 Hytrin PO 07/01/19 08:59 10 mg QAM JENNY Administration Zolpidem Tartrate 10 mg 06/01/19 21:00 06/01/19 01:24 Ambien PO 07/01/19 20:59 10 mg HS JENNY Administration Past Medical History Medical History CHF (congestive heart failure) (Resolved) DIASTOLIC- NO RECENT ISSUES 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) Hx of deep venous thrombosis (Resolved) 10 YEARS AGO WHEN DX WITH LEUKEMIA Myocardial infarction (Resolved) S/P CABG X3 (2014) AT [place] Thoracic aortic aneurysm (Resolved) REASON FOR PROCEDURE= 6.5CM* Peripheral neuropathy Past Family History Family History Other No pertinent family history Past Surgical History Surgical History History of cataract surgery (Resolved) LEFT History of tonsillectomy (Resolved) History of tooth extraction (Resolved) History of total right hip arthroplasty (Resolved) Hx of colonoscopy (Resolved) Hx of transurethral resection of prostate (Resolved) S/P thoracic aortic aneurysm repair (Resolved) Social History Smoking Status: Former smoker tobacco type: cigarettes Smoking cigarettes per day: QUIT 40 YRS AGO; "LIGHT USE" PRIOR TO QUITTING Do You Dip or Chew Tobacco: No Smoking End Date: 50 yr ago Hx Alcohol Use: Yes Alcohol type: wine alcohol intake frequency: 0-2 drinks per day Alcohol Intake Frequency Comment: 1 8oz glass wine/day Hx Substance Use: No substance use type: does not use Physical Exam Vital Signs Last Vital Signs Temp 36.5 C 06/01/19 07:00 Pulse 81 06/01/19 07:00 Resp 18 06/01/19 07:00 BP 147/90 H 06/01/19 07:00 Pulse Ox 95 06/01/19 07:00 Testing Laboratory Results 06/01/19 06:47 06/01/19 06:47
--- NOTE | 2019-06-01 10:09 | Cardiology Consultation ---
Date of Consultation June 01, 2019 Assessment & Plan (1) Ischemic cardiomyopathy: (2) Coronary artery disease: (3) Paroxysmal atrial fibrillation: (4) Essential hypertension: (5) Preoperative cardiovascular examination: Mr. Salazar is an 89 year male with a history of Hypertension, Hype rcholesterolemia, Descending Thoracic Aortic Aneurysm s/p Endovascular Repair August 2018, Diastolic CHF (August 2015), Paroxysmal Atrial Fibrillation (not a candidate for anticoagulation due to spontaneous hemorrhages), Ischemic Cardiomyopathy and CAD s/p CABG x 3 Vessels, January 2015 -- who is being seen for Pre-operative Cardiologic Evaluation. Patient was admitted to [facility] on 05/31/2019 with Cervical Cord Compression and Neurologic Defecits and scheduled to undergo urgent decompression surgery later today. Patient is stable from cardiac standpoint -- he has not had any angina pectoris or anginal equivalent symptoms, his CHF is well compensated, his A-Fib is rate controlled and completely asymptomatic, he has been physically active without limiting cardiopulmonary symptoms, and he tolerated an endovascular descending thoracic aorta repair 10 months ago without cardiac complications. Based on these factors -- patient is an intermediate but acceptable surgical risk to proceed with surgery as scheduled. There is no need for further cardiac evaluation at this time. Patient should take his usual dose of Lopressor 12.5 mg on the morning of surgery with sips of water . Recommend cautious use of rhiannon-operative IV fluids, close monitoring of daily body weights and I&O's. Thank you for asking us to see this patient in consultation. Please contact us if we can be of any further assistance to you. Supervising Physician Co-Signing Physician Notes Misael Mauricio MD History of Present Illness Reason for Consultation: -- CAD s/p CABG x 3 Vessels 2014. -- Ischemic Cardiomyopathy. -- H/O CHF. -- Atrial Fibrillation. -- Preoperative Cardiologic Evaluation. Requesting Physician: Austin Hooks MD Attending Physician: Misael Mauricio MD History of Present Illness Mr. Salazar is an 89 year male with a history of Hypertension, Hypercholesterolemia, Descending Thoracic Aortic Aneurysm s/p Endovascular Repair August 2018, Diastolic CHF (August 2015), Paroxysmal Atrial Fibrillation (not a candidate for anticoagulation due to spontaneous hemorrhages), Ischemic Cardiomyopathy and CAD s/p CABG x 3 Vessels, January 2015 -- who is being seen for Pre-operative Cardiologic Evaluation. Patient was admitted to [facility] on 05/31/2019 with Cervical Cord Compression and Neurologic Defecits and scheduled to undergo urgent decompression surgery later today. Patient has been stable from a cardiac standpoint but has been having some balance issues and arm weakness over the past 2 to 3 weeks. He normally maintains his home and cares for his . Patient denies any exertional chest pain, heaviness, tightness, pressure, discomfort, or any angina pectoris. He denies any exertional neck, jaw, back, or arm pain. No SOB, unusual DRAKE, orthopnea, or pnd. His body weight has been stable on his home scales and he monitors this closely. Patient is currently in A-Fib with a controlled V-rate (72 to 76 bpm) and is completely asymptomatic with it. He denies any palpitations, syncope, or near syncope. Patient remains compliant with his medications and denies any adverse side effects. HISTORICAL BACKGROUND: Patient presented in December 2014 with an NSTEMI and Acute CHF. He subsequently underwent a CARDIAC CATHETERIZATION 01/24/2019 which showed: -- LMCA -- 80% Ostial stenosis, 95% distal stenosis. -- LAD -- Sequential 95% proximal stenoses, 95% midvessel stenosis. -- D1 -- 95% Proximal stenosis. -- LCx -- 95% Proximal stenosis. -- OM1 -- 80% Proximal stenosis. -- RCA -- 100% Proximal occlusion with L-to-R collaterals present. Transferred to [facility] for CABG x 3 Vessels early January 2015: -- SVG to LAD. -- SVG to OM1. -- SVG to PDA. Allergies Allergy/AdvReac Type Severity Reaction Status Date / Time No Known Allergies Allergy Verified 05/31/19 19:31 Home Medications Home Medications Medication Instructions Recorded Confirmed Type aspirin 81 mg PO QAM 05/19/18 05/31/19 History atorvastatin 80 mg PO HS 05/19/18 05/31/19 History furosemide 40 mg PO QAM 05/19/18 05/31/19 History zolpidem 10 mg PO HS 05/19/18 05/31/19 History lisinopril 10 mg PO QAM 06/09/18 05/31/19 History metoprolol tartrate 12.5 tab PO BID 06/24/18 05/31/19 History Symbicort 2 puff INHALATION BID 09/07/18 05/31/19 History albuterol sulfate [ProAir HFA] 2 puff INHALATION Q4H PRN 05/31/19 05/31/19 History terazosin 10 mg PO QAM 05/31/19 05/31/19 History Patient History Medical History CHF (congestive heart failure) (Resolved) DIASTOLIC- NO RECENT ISSUES 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) Hx of deep venous thrombosis (Resolved) 10 YEARS AGO WHEN DX WITH LEUKEMIA Myocardial infarction (Resolved) S/P CABG X3 (2014) AT [place] Thoracic aortic aneurysm (Resolved) REASON FOR PROCEDURE= 6.5CM* Peripheral neuropathy Surgical History History of cataract surgery (Resolved) LEFT History of tonsillectomy (Resolved) History of tooth extraction (Resolved) History of total right hip arthroplasty (Resolved) Hx of colonoscopy (Resolved) Hx of transurethral resection of prostate (Resolved) S/P thoracic aortic aneurysm repair (Resolved) Family History Other No pertinent family history Social History Preferred Language: Tajik Communication Ability: Effective Oil Burner Technician Required: No Beliefs That Will Affect Care: None Current Living Situation: Spouse and Personal Care Facility Other Information That Helps Us Care for You: Yes (cabg and aa stent 1 year ago) Feels Safe at Home: Yes Safety Concerns: Feels Safe At This Time Smoking Status: Former smoker Tobacco Type: cigarettes ; Cigarettes Per Day: QUIT 40 YRS AGO; "LIGHT USE" PRIOR TO QUITTING ; Do You Dip or Chew Tobacco: No ; Smoking End Date: 50 yr ago ; Second Hand Exposure: No ; Hx Alcohol Use: Yes Alcohol type: wine Hx Substance Use: No Physical Exam Physical Exam: GENERAL: Patient in no acute distress. HEENT: Head is atraumatic, normocephalic. EOM's intact. Facies symmetric. No perioral cyanosis. NECK: No JVD. JVP is not elevated. Carotid upstrokes are + 2 bilaterally without obvious bruits. CHEST/LUNGS: Clear to auscultation throughout all lung ortiz. No wheezes, rales, or crackles. CVS: S1 and S2 are irregularly irregular with an apical rate of 74 bpm with a grade 1/6 basal systolic murmur. No obvious diastolic murmurs. No gallops or rubs. PMI is nondisplaced. No lifts, heaves, or thrills. No abdominal aortic or renal bruits. Well healed median sternotomy incision. ABDOMINAL EXAM: Bowel sounds are present. No masses, organomegaly, or tenderness. EXTREMITIES: No clubbing or cyanosis. +2 RLE edema, +1 LLE edema. Intact radial pulses bilaterally. NEUROLOGIC EXAM: Patient is awake, alert, and oriented. Pleasant and cooperative. Answers questions appropriately. Speech is clear. LUE weakness is pronounced. Gait pattern was not assessed. TELEMETRY: -- Atrial fibrillation with controlled ventricular response rate. EKG 05/31/2019: -- Atrial fibrillation with slow V-rate of 54 bpm. -- Old inferior and anterior MS cited on or before December 2014. -- No change compared to 10/26/2018 tracing. ECHOCARDIOGRAM 06/01/2019: -- LVEF 40% to 45% with RMA's. -- Felled Seam Operator's interpretation is pending. Results & Data Vital Signs (Past 12 Hours) Vital Signs Temp Pulse Resp BP BP Pulse Ox 06/01/19 07:00 36.5 C 81 18 147/90 H 95 06/01/19 04:54 36.6 C 74 16 203/106 H 96 05/31/19 22:56 36.5 C 74 14 202/100 H 95 05/31/19 22:15 66 18 142/92 H 99 PG Care Time/CCT Total # of Minutes Spent Total Time Spent with Patient: Total time spent is greater than 50% in coordination of care (as documented) at patient's floor/unit and/or counseling patient:
[2019-06-01] MEDS ORDERED: BACITRACIN INJ 50,000 UNIT VIAL ONE (11:28)
[2019-06-01] MEDS ORDERED: CEFAZOLIN 2000MG 2,000 MG/15 ML SYR IV ONE (12:32)
[2019-06-01] MEDS ORDERED: NALOXONE HCL 0.4 MG/1 ML VIAL/CARP IV PRN ×2 (12:45→16:16)
[2019-06-01] MEDS ORDERED: ATROPINE SULFATE 0.1 MG/ML 10ML SYR IV PRN (12:45)
[2019-06-01] MEDS ORDERED: LABETALOL HCL IV 5 MG/ML 20ML IV PRN (12:45)
[2019-06-01] MEDS ORDERED: PROMETHAZINE HCL 12.5 MG in SODIUM CHLORIDE 0.9% 50 ML IV PRN ×2 (12:45→16:16)
[2019-06-01] MEDS ORDERED: fentaNYL citrate 100 MCG/2 ML VIAL IV PRN (12:45)
[2019-06-01] MEDS ORDERED: ePHEDrine sulfate 50 MG/ML AMP IV PRN (12:45)
[2019-06-01] MEDS ORDERED: FLUMAZENIL 0.1 MG/1 ML 10 ML VIAL IV PRN (12:45)
[2019-06-01] MEDS ORDERED: ONDANSETRON INJ 2 MG/ML 2 ML VIAL IV PRN ×2 (12:45→16:16)
[2019-06-01] MEDS ORDERED: CEFAZOLIN 250 MG/ML 1 GM VIAL ONE (12:57)
[2019-06-01] MEDS ORDERED: HYDROmorphone INJ 2 MG/ML SYR/VIAL ONE (13:13)
[2019-06-01] MEDS ORDERED: FLOSEAL HEMOSTATIC MATRIX 10ML TOP ONE (13:19)
[2019-06-01] MEDS ORDERED: VASOPRESSIN 20 UNIT/ML VIAL ONE (13:55)
[2019-06-01] MEDS ORDERED: ePHEDrine sulfate 50 MG/ML SYR ONE (13:55)
[2019-06-01] MEDS ORDERED: PHENYLEPHRINE 100MCG/ML 5ML SYR ONE (13:55)
--- NOTE | 2019-06-01 14:31 | Operative Report ---
Post Operative Report Pre & Post Diagnosis Operation Date: 06/01/19 12:00 Pre-Op Diagnosis: C4-C5 CORD COMPRESSION AND EDEMA Post-Op Diagnosis: C4-C5 CORD COMPRESSION AND EDEMA Procedure Operation Date: 06/01/19 12:00 Actual Procedures #1 anterior cervical corpectomy C4 with bilateral foraminotomies. #2 anterior cervical arthrodesis C3-C5. #3 placement of peek cage 23 mm in height C3-C5. #4 placement locally harvested morselized autograft combined with DBM and interbody cage. #5 application of flores plate and screws from C3-C5. Surgeon Michael Juan, DO Computerized Machine Fabric Cutter None Estimated Blood Loss 25 Findings Consistent with Post-Op Diagnosis Specimens None Indications Last evening with marked decline in neurologic status. Subsequently we elected to undergo urgent anterior cervical decompression. Description of Procedure Patient was met with identified and informed consent obtained. Patient was then taken to the operative suite underwent intubation placed in supine position Oliver table with head Grijalva head refrigerating engineer. All bony prominences well-padded eyes inspected to ensure no external pressure placed upon. This point the anterior cervical spine was prepped and draped in normal sterile fashion. The assistance of fluoroscopy identified the see for vertebral body and a transverse incision was placed along the right anterior aspect of the cervical spine overlying this region. Sharp dissection with the assistance of bipolar electrocautery was performed down to and exposing the anterior cervical spine from C3-C5. Self-retaining retractors placed. And then performed a complete discectomy of see 3 4 out to the uncovertebral joints bilaterally followed by C4-5. Lyons distracting pins were then placed in C3 and C5 distract across the C4 vertebral body. And then performed a complete corpectomy of C4 removing all posterior annular fibers longitudinal ligament and performing bilateral foraminotomies to address severe stenosis. Endplates were then burred to subcortical bleeding bone and a 23 mm peek cage filled with locally harvested morselized autograft and DBM tapped in position. Distraction apparatus was removed and a flores plate and screws applied with the assistance of fluoroscopy. Incision was then copiously irrigated explored to ensure no demonstrate surrounding structures remaining bleeding. 10 round KRYSTINA drain inserted. Incision was then closed with 2 Vicryl in the fascia and 4 Monocryl for final skin closure. Steri-Strip sterile dressings placed. Patient will continue to PACU stable condition. I attest to the content of the Intraoperative Record and any orders documented therein. Any exceptions are noted below.
--- NOTE | 2019-06-01 14:45 | Fluoroscopy Report ---
INTRAOPERATIVE RADIOGRAPHS CLINICAL HISTORY: C3-C5 spinal fusion. Fluoroscopy time: 10.5 seconds. FINDINGS: 2 spot fluoroscopic views of the cervical spine are presented. An endotracheal tube is in p lace. There has been corpectomy at C4 with anterior fusion from C3-C5. The orthopedic hardware appear s intact. IMPRESSION: Intraoperative images from anterior cervical spine fusion as above. Electronically signed by: Branden Orr M.D. 06/01/2019 2:43 PM
--- NOTE | 2019-06-01 15:32 | Anesthesiology Progress Note ---
Date of Service June 01, 2019 Anesthesia Post Procedure Vital Signs Vital Signs: Temp Pulse Pulse Resp BP BP BP 06/01/19 15:25 36.8 C 54 L 14 164/83 H 06/01/19 15:15 36.3 C L 59 L 14 164/88 H 06/01/19 15:05 36.3 C L 58 L 13 172/86 H 06/01/19 14:55 36.3 C L 57 L 15 164/88 H 06/01/19 14:45 36.3 C L 57 L 15 168/90 H 06/01/19 14:38 36.3 C L 67 15 136/97 06/01/19 11:48 36.5 C 73 16 168/107 H 06/01/19 07:00 36.5 C 81 18 147/90 H 06/01/19 04:54 36.6 C 74 16 203/106 H 05/31/19 22:56 36.5 C 74 14 202/100 H 05/31/19 22:15 66 18 142/92 H 05/31/19 21:01 61 12 05/31/19 21:00 56 L 14 172/98 H 05/31/19 20:46 55 L 16 170/87 H 05/31/19 20:30 54 L 14 05/31/19 20:00 62 15 05/31/19 19:30 51 L 10 L 05/31/19 19:28 52 L 17 05/31/19 19:15 05/31/19 18:59 36.6 C 69 16 160/84 H 05/31/19 18:56 52 L 17 160/84 H Pulse Ox 06/01/19 15:25 96 06/01/19 15:15 95 06/01/19 15:05 97 06/01/19 14:55 97 06/01/19 14:45 95 06/01/19 14:38 96 06/01/19 11:48 94 06/01/19 07:00 95 06/01/19 04:54 96 05/31/19 22:56 95 05/31/19 22:15 99 05/31/19 21:01 96 05/31/19 21:00 95 05/31/19 20:46 97 05/31/19 20:30 05/31/19 20:00 05/31/19 19:30 05/31/19 19:28 05/31/19 19:15 95 05/31/19 18:59 95 05/31/19 18:56 Transfer of Care Handoff Completed per policy Notes Mental Status: alert / awake / arousable Patient Amnestic to Procedure: Yes Nausea / Vomiting: adequately controlled Pain: adequately controlled Airway Patency, RR, SpO2: stable & adequate BP & HR: stable & adequate Hydration State: stable & adequate Anesthetic Complications: no major complications apparent
[2019-06-01] MEDS ORDERED: OXYCODONE HCL IR 5 MG TAB (IMMEDIATE RELEASE) PO PRN (16:16)
[2019-06-01] MEDS ORDERED: RACEPINEPHRINE 2.25% NEBU SOLN 0.5 ML VIAL INH PRN (16:16)
[2019-06-01] MEDS ORDERED: DO NOT ADMINISTER PNEUMOCOCCAL VACCINE PRN (16:16)
[2019-06-01] MEDS ORDERED: MAGNESIUM HYDROXIDE SUSP 30 ML UDC PO PRN (16:16)
[2019-06-01] MEDS ORDERED: LORazepam 0.5 MG TAB PO PRN (16:16)
[2019-06-01] MEDS ORDERED: ACETAMINOPHEN 500 MG TAB PO PRN (16:16)
[2019-06-01] MEDS ORDERED: ALUMINUM/MAGNESIUM SUSP 30 ML UDC PO PRN (16:16)
[2019-06-01] MEDS ORDERED: LACTATED RINGER'S 1,000 ML IV SCH (16:16)
[2019-06-01] MEDS ORDERED: HYDROmorphone INJ 0.5 MG/0.5 ML SYR IV PRN (16:16)
[2019-06-01] MEDS ORDERED: METOCLOPRAMIDE HCL INJ 5 MG/ML 2 ML VIAL IV PRN (16:16)
[2019-06-01] MEDS ORDERED: DO NOT ADMINISTER FLU VACCINE PRN (16:16)
[2019-06-01] MEDS ORDERED: TRAMADOL HCL 50 MG TABLET PO PRN (16:16)
[2019-06-01] MEDS ORDERED: DEXAMETHASONE SOD PHOSPHATE 8 MG in SYRINGE 0 ML IV PRN (16:16)
[2019-06-01] MEDS ORDERED: ONDANSETRON 4 MG TAB PO PRN (16:16)
[2019-06-01] MEDS ORDERED: LORazepam 0.5 MG/1 ML VIAL IV PRN (16:16)
[2019-06-01] MEDS ORDERED: FAMOTIDINE 20 MG TAB PO PRN (16:16)
[2019-06-01] MEDS ORDERED: ACETAMINOPHEN 1,000 MG/100 ML VIAL IV PRN (16:16)
[2019-06-01] MEDS ORDERED: SOD PHOSPHATE/SOD BIPHOSPHATE ENEMA 132 ML BTL PR PRN (16:16)
[2019-06-01] MEDS: POLYETHYLENE (MIRALAX) 17 GM PACK PO SCH (17:23)
[2019-06-01] MEDS: CEFAZOLIN 2000MG 2,000 MG/15 ML SYR IV SCH (17:23)
[2019-06-01] MEDS: DEXAMETHASONE SOD PHOSPHATE 6 MG in SYRINGE 0 ML IV SCH (17:54)
[2019-06-01] MEDS: ATORVASTATIN 40 MG TAB PO SCH (21:58)
[2019-06-01] MEDS: DOCUSATE SODIUM/SENNA 50/8.6MG TAB PO SCH (21:58)
--- NOTE | 2019-06-01 22:51 | Hospitalist Progress Note ---
Date of Service June 01, 2019 Assessment & Plan (1) Cervical spinal cord compression: Appreciate Dr Juan management Medical optimized for surgery pending cardiology clearance. (2) Paroxysmal atrial fibrillation: per cardiology management (3) Essential hypertension: Stable continue home meds (4) Coronary artery disease: per cardiology mangement (5) CHF (congestive heart failure): per cardiology No IV fluids prior to surgery (6) Benign prostate hyperplasia: Stable. Continue home meds (7) Asthma: Stable. Continue home meds (8) DVT prophylaxis: SCDs Chemical contraindicated due to spine surgery. Code - full Disposition - pending operation will likely need rehab placement Subjective Patient seen in AM prior to surgery. NPO for cervical spine cord decompression today. He reports bilateral upper extremity weakness ongoing for some time but rapidly deteriorating weakness starting around 3 weeks ago mainly in proximal arms but also his legs. He recently moved into a new personal care facility and had a new physician who ordered a cervical spine MRI showing spinal cord edema with spinal cord stenosis so was sent to the ER for treatment. No trauma that he can think of that started this off. MRI and patient reviewed by Dr Juan with plan for spinal cord decompression today. He has an extensive cardiac history therefore cardiology consulted for clearance. With regards to other medical conditions he has asthma that is well controlled on current medication. BPH without LUTS on terazosin. GERD controlled on famotidine. Review of Systems Review of Systems: All systems reviewed & are unremarkable except as noted in HPI & below Physical Exam Constitutional: well developed and + obese; no acute distress Eyes: PERRL and EOM intact bilaterally ENMT: external ear and nose normal, oropharynx normal Neck: normal visual inspection and trachea midline Respiratory: normal respiratory effort; no respiratory distress, no labored breathing and no cough Auscultation: lungs clear to auscultation bilaterally; no crackles, no rales, no rhonchi and no wheezes Cardiovascular: Rate/Rhythm: + irregularly irregular Heart Sounds: + murmur Vessels: no carotid bruit Extremities: + edema (Right > left (pt reports chronic due to prior trauma on this side)); no calf tenderness Gastrointestinal (Abdomen): Inspection/Auscultation: + abdomen distended (reports normal for him) and normal bowel sounds Percussion/Palpation: abdomen soft; abdomen nontender and no guarding Neurologic: + focal motor deficit (bilateral 2+/5 shoulder abduction, unable to get past 90 degrees) and awake; not confused Speech / Cognition: normal speech Motor/Sensory: + sensory deficit (stocking distribution leg numbness) Left biceps retracted (prior tendon rupture) 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 Psychiatric: Orientation: alert and oriented x 3 Results & Data Vital Signs (Past 12 Hours) Vital Signs Temp Pulse Resp BP BP Pulse Ox Pulse Ox 06/01/19 20:46 98.2 F 64 18 154/72 H 97 06/01/19 19:36 98.1 F 58 L 20 164/77 H 98 06/01/19 19:35 63 16 94 06/01/19 18:46 98.8 F 64 16 157/68 H 97 06/01/19 18:11 96 06/01/19 18:08 97 06/01/19 17:46 99.0 F 60 18 163/84 H 96 06/01/19 17:16 59 L 18 98 06/01/19 16:46 98.2 F 57 L 18 168/88 H 97 06/01/19 16:21 98.2 F 53 L 18 158/83 H 97 06/01/19 15:45 98.2 F 57 L 24 159/89 H 94 06/01/19 15:35 98.2 F 57 L 21 168/87 H 95 06/01/19 15:25 98.2 F 54 L 14 164/83 H 96 06/01/19 15:15 97.3 F L 59 L 14 164/88 H 95 06/01/19 15:05 97.3 F L 58 L 13 172/86 H 97 06/01/19 14:55 97.3 F L 57 L 15 164/88 H 97 06/01/19 14:45 97.3 F L 57 L 15 168/90 H 95 06/01/19 14:38 97.3 F L 67 15 136/97 96 06/01/19 11:48 97.7 F 73 16 168/107 H 94 PG Care Time/CCT Total # of Minutes Spent Total Time Spent with Patient: Total time spent is greater than 50% in coordination of care (as documented) at patient's floor/unit and/or counseling patient:
[2019-06-02] MEDS: DEXAMETHASONE SOD PHOSPHATE 6 MG in SYRINGE 0 ML IV SCH ×2 (00:17→08:35)
[2019-06-02] MEDS: POLYETHYLENE (MIRALAX) 17 GM PACK PO SCH ×5 (00:17→23:47)
[2019-06-02] MEDS: CEFAZOLIN 2000MG 2,000 MG/15 ML SYR IV SCH (00:18)
[2019-06-02 06:32] LABS: Hematocrit (blood only) 36.6 % (42-52); Hemoglobin 11.8 g/dL (14.0-18.0); Mean Corpuscular Hemoglobin 29.4 pg (25-34); Mean Corpuscular Hgb Conc 32.2 g/dL (32-36); Mean Corpuscular Volume 91.3 fL (80-100); RDW Coefficient of Variation 15.2 % (11.5-14.5); RDW Standard Deviation 51.1 fL (36.4-46.3); Red Blood Count 4.01 M/uL (4.7-6.1)
[2019-06-02 06:34] LABS: Mean Platelet Volume 9.6 fL (7.4-10.4); Platelet Count 98 K/uL (130-400)
[2019-06-02 07:05] LABS: BUN Creatinine Ratio 19.5 (10-20); Calcium 8.4 mg/dl (8.5-10.1); Creatinine Clr Calc Pharmacy 43.6 ml/min; Est GFR (African American) 54.4; Potassium 3.9 mmol/L (3.5-5.1)
[2019-06-02 07:07] LABS: Immature Granulocytes # (auto) 0.01 K/uL (0.00-0.02); Immature Granulocytes % (auto) 0.2 %; Lymphocytes # (auto) 0.33 K/uL (1.2-3.4); Monocytes # (auto) 0.39 K/uL (0.11-0.59); Monocytes % (auto) 5.9 %; Neutrophils # (auto) 5.87 K/uL (1.4-6.5); Neutrophils % (auto) 88.9 %; Platelet Estimate Decreased (Normal)
--- NOTE | 2019-06-02 07:40 | Anesthesiology Progress Note ---
Date of Service June 02, 2019 Anesthesia Post Procedure Vital Signs Vital Signs: Temp Pulse Pulse Pulse Resp BP BP 06/02/19 07:30 52 L 16 06/02/19 06:00 36.3 C L 49 L 22 183/94 H 06/02/19 04:00 36.5 C 55 L 20 175/70 H 06/02/19 03:40 54 L 16 06/02/19 02:46 36.8 C 55 L 20 158/71 H 06/02/19 00:38 63 06/01/19 23:43 58 L 16 06/01/19 23:00 36.9 C 63 18 150/73 H 06/01/19 20:46 36.8 C 64 18 154/72 H 06/01/19 19:36 36.7 C 58 L 20 164/77 H 06/01/19 19:35 63 16 06/01/19 18:46 37.1 C 64 16 157/68 H 06/01/19 18:11 06/01/19 18:08 06/01/19 17:46 37.2 C 60 18 163/84 H 06/01/19 17:16 59 L 18 06/01/19 16:46 36.8 C 57 L 18 168/88 H 06/01/19 16:21 36.8 C 53 L 18 158/83 H 06/01/19 15:45 36.8 C 57 L 24 159/89 H 06/01/19 15:35 36.8 C 57 L 21 168/87 H 06/01/19 15:25 36.8 C 54 L 14 164/83 H 06/01/19 15:15 36.3 C L 59 L 14 164/88 H 06/01/19 15:05 36.3 C L 58 L 13 172/86 H 06/01/19 14:55 36.3 C L 57 L 15 164/88 H 06/01/19 14:45 36.3 C L 57 L 15 168/90 H 06/01/19 14:38 36.3 C L 67 15 136/97 06/01/19 11:48 36.5 C 73 16 168/107 H Pulse Ox Pulse Ox 06/02/19 07:30 98 06/02/19 06:00 99 06/02/19 04:00 98 06/02/19 03:40 99 06/02/19 02:46 100 06/02/19 00:38 06/01/19 23:43 95 06/01/19 23:00 96 06/01/19 20:46 97 06/01/19 19:36 98 06/01/19 19:35 94 06/01/19 18:46 97 06/01/19 18:11 96 06/01/19 18:08 97 06/01/19 17:46 96 06/01/19 17:16 98 06/01/19 16:46 97 06/01/19 16:21 97 06/01/19 15:45 94 06/01/19 15:35 95 06/01/19 15:25 96 06/01/19 15:15 95 06/01/19 15:05 97 06/01/19 14:55 97 06/01/19 14:45 95 06/01/19 14:38 96 06/01/19 11:48 94 Pain Intensity Right Neck: Pain Intensity: 3 Notes Mental Status: alert / awake / arousable and participated in evaluation Patient Amnestic to Procedure: Yes Nausea / Vomiting: adequately controlled Pain: adequately controlled Airway Patency, RR, SpO2: stable & adequate BP & HR: stable & adequate Hydration State: stable & adequate Anesthetic Complications: no major complications apparent and Pt Satisfied with anesthetic care
[2019-06-02] MEDS: TERAZOSIN HCL 5 MG CAP PO SCH (08:35)
[2019-06-02] MEDS: ASPIRIN 81 MG ECTAB PO SCH (08:35)
[2019-06-02] MEDS: lisinopriL 10 MG TAB PO SCH (08:36)
[2019-06-02] MEDS: FAMOTIDINE 20 MG TAB PO SCH (08:36)
[2019-06-02] MEDS: BUDESONIDE/FORMOTEROL FUMARATE 160/4.5 60 PUFFS/INHALER INH SCH ×2 (08:36→20:07)
[2019-06-02] MEDS: METOPROLOL TARTRATE 25 MG TAB PO SCH ×2 (08:37→20:06)
--- NOTE | 2019-06-02 10:02 | Orthopedic Progress Note ---
Date of Service June 02, 2019 Assessment & Plan (1) Cervical spinal cord compression: This time will initiate with occupational as well as physical therapy hopefully begin attempts at ambulation today. We will maintain the KRYSTINA drain. Maintain the collar. I will advance him to full liquid diet. Present on Admission?: Yes Subjective Patient's arm symptoms are improved. He feels that his numbness and tingling in the upper extremities is also noticeably improved. He has no neck pain. He is swallowing clear liquids without difficulty. Physical Exam Physical Exam: On and on exam his neck is supple. He has improved strength testing upper extremities. He does have known deficit to the left biceps pre- existing as well as marked deficits of bilateral deltoids. He has not been out of bed and walked yet. Results & Data Vital Signs (Past 12 Hours) Vital Signs Temp Pulse Pulse Pulse Resp BP BP 06/02/19 08:46 36.5 C 49 L 18 178/90 H 06/02/19 08:42 36.6 C 55 L 18 180/89 H 06/02/19 07:30 52 L 16 06/02/19 07:00 36 C L 53 L 18 170/89 H 06/02/19 06:00 36.3 C L 49 L 22 183/94 H 06/02/19 04:00 36.5 C 55 L 20 175/70 H 06/02/19 03:40 54 L 16 06/02/19 02:46 36.8 C 55 L 20 158/71 H 06/02/19 00:38 63 06/01/19 23:43 58 L 16 06/01/19 23:00 36.9 C 63 18 150/73 H Pulse Ox 06/02/19 08:46 96 06/02/19 08:42 94 06/02/19 07:30 98 06/02/19 07:00 06/02/19 06:00 99 06/02/19 04:00 98 06/02/19 03:40 99 06/02/19 02:46 100 06/02/19 00:38 06/01/19 23:43 95 06/01/19 23:00 96
[2019-06-02] MEDS ORDERED: PHARMACY GLYCEMIC MGMT CONSULT PRN (11:56)
[2019-06-02] MEDS ORDERED: GLUCOSE 10 TABS/TUBE PO PRN (12:15)
[2019-06-02] MEDS ORDERED: DEXTROSE 50% 50 ML SYRINGE IV PRN (12:15)
[2019-06-02] MEDS ORDERED: GLUCAGON FOR INJ 1 MG VIAL SQ PRN (12:15)
[2019-06-02] MEDS ORDERED: GLUCOSE 40% GEL 15 GM TUBE PO PRN (12:15)
[2019-06-02] MEDS ORDERED: CARBOHYDRATES FOR HYPOGLYCEMIA PO PRN (12:15)
[2019-06-02] MEDS: INSULIN ASPART 100 UNITS/ML 3 ML PEN SC SCH ×3 (12:32→20:16)
--- NOTE | 2019-06-02 12:57 | Cardiology Progress Note ---
Date of Service June 02, 2019 Assessment & Plan (1) Ischemic cardiomyopathy: Echocardiogram performed yesterday noted mildly depressed ejection fraction at 45% with hypokinesis of the inferolateral wall. The patient remains compensated. (2) Coronary artery disease: The patient underwent a 3 vessel bypass in January 2015. He has done well from a cardiac perspective since that time. (3) Paroxysmal atrial fibrillation: The patient is not a candidate for long-term anticoagulation due to spontaneous hemorrhage is. (4) Essential hypertension: Adequate control on current medical regimen. (5) Cervical spinal cord compression: The patient underwent an anterior cervical corpectomy by Dr. Juan yesterday. Subjective The patient is resting comfortably in bed without complaints of chest pain or dyspnea. Arm paresthesias are improving post surgery. Physical Exam Physical Exam: In general this is a well-developed well-nourished white male in no acute distress. HEENT exam is negative. Neck is in a brace. Cardiovascular exam reveals an irregular rhythm with distant heart sounds. Lungs are clear without rales, rhonchi, or wheezes. Abdomen is soft and nontender without bruits. Extremities reveal intact radial artery and posterior tibial pulses bilaterally. There is no peripheral edema. 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 PG Care Time/CCT Total # of Minutes Spent Total Time Spent with Patient: Total time spent is greater than 50% in coordination of care (as documented) at patient's floor/unit and/or counseling patient:
--- NOTE | 2019-06-02 13:03 | Pharmacy Report ---
Glycemic Control Consultation - Date of Service June 02, 2019 - Scope Scope: Glycemic Pharmacist consulted by Dr Hooks on 06/02 for glycemic control and to write orders per [facility] inpatient glycemic control protocol - Objective Weight: 96.3 kg Accuchecks BSG (last 24hrs): 06/02/19 06/02/19 06:23 12:13 Glucose 173 H POC Glucose 134 H Laboratory Data (last 24hrs): 06/02/19 06:23 Potassium 3.9 Carbon Dioxide 25 Anion Gap 9.0 Creatinine 1.34 Est Cr Clr Drug Dosing 43.6 - Recent Pertinent Medications Outpatient Anti-diabetic Regimen: * n/a * A1c - none available The patient is currently receiving: * No insulin Risk Factors for Insulin Resistance: * Steroids: Decadron 4 mg IV x 2 doses yesterday (in addition to dose in OR), then 6 mg IV x 2 doses today (last dose at 0900) * Recent Surgery: POD 1 s/p anterior cervical decompression * Diet: - Assessment & Plan Assessment & Plan: ASSESSMENT: * 89 y/o male admitted for cervical spine compression. No history of diabetes. He received a few doses of Decadron on 06/01 and 06/02, which caused fasting BSG to increase (173 mg/dL this AM). * Last dose of Decadron given this AM so I anticipated the effects of this to remain throughout today * Discussed addition of Novolog at rounds and pharmacy received a consult for glycemic management * Surprisingly, pre lunch BSG down to 136 mg/dL, without any insulin so will plan on initiating correctional insulin only PLAN FOR INPATIENT GLYCEMIC CONTROL: * Bolus insulin * NovoLog per scale ACHS or Q6hrs while NPO * Goal Range: Low 110 mg/dL - High 150 mg/dL * Correction Factor: 25 mg/dL/unit * Consider stopping Novolog tomorrow as long as BSGs remain stable off Decadron * Please note that the plan above was derived based on current level of insulin resistance and hospital stress. These recommendations are appropriate for inpatient admission only. Plan of care upon discharge will need to be reassessed to avoid potential outpatient hypo/hyperglycemia. Thank you.
--- NOTE | 2019-06-02 18:37 | Hospitalist Progress Note ---
Date of Service June 02, 2019 Assessment & Plan (1) Cervical spinal cord compression: POD #1 s/p cervical spinal cord decompression with C4 corpectomy. Management as per Dr Juan with dexamethsone and pain regimen Will consult glycemic control to monitor glucose while on dexamethasone (2) Paroxysmal atrial fibrillation: per cardiology management (3) Essential hypertension: Stable continue home meds (4) Coronary artery disease: per cardiology management (5) CHF (congestive heart failure): per cardiology no current exacerbation (6) Benign prostate hyperplasia: Stable. Continue home meds (7) Asthma: Stable. Continue home meds (8) DVT prophylaxis: SCDs Chemical contraindicated due to recent spinal surgery. Code - full Subjective Patient in neck collar after cervical spinal cord decompression. Requiring minimal pain relief after operation. Nursing reports some desaturation events on exertion of talking too much but otherwise not on oxygen. No acute events overnight. Notes improvement already in leg strength and bilateral arm numbness. Review of Systems Review of Systems: All systems reviewed & are unremarkable except as noted in HPI & below Respiratory: + chest congestion (mild congestion in back of throat) Physical Exam Constitutional: well developed and + obese; no acute distress Eyes: PERRL and EOM intact bilaterally ENMT: right sided facial swelling from recent surgery Neck: Neck collar present Respiratory: normal respiratory effort; no respiratory distress, no labored breathing and no cough Auscultation: lungs clear to auscultation bilaterally; no crackles, no rales, no rhonchi and no wheezes Cardiovascular: Rate/Rhythm: + irregularly irregular Heart Sounds: + murmur Vessels: no carotid bruit Extremities: + edema (2+ Right > 1+ left (pt reports chronic due to prior trauma on this side)); no calf tenderness Gastrointestinal (Abdomen): Inspection/Auscultation: + abdomen distended and normal bowel sounds Percussion/Palpation: abdomen soft; abdomen nontender and no guarding Neurologic: awake; not confused Psychiatric: Orientation: alert and oriented x 3 Results & Data Vital Signs (Past 12 Hours) Vital Signs Temp Pulse Pulse Resp BP Pulse Ox Pulse Ox 06/02/19 16:00 62 94 06/02/19 15:41 57 L 16 97 06/02/19 15:31 97.5 F L 58 L 16 154/81 H 94 06/02/19 12:46 97.9 F 59 L 18 158/87 H 97 06/02/19 11:21 60 16 96 06/02/19 11:18 55 L 16 97 06/02/19 11:16 97.5 F L 53 L 19 168/77 H 96 06/02/19 08:46 97.7 F 49 L 18 178/90 H 96 06/02/19 08:42 97.9 F 55 L 18 180/89 H 94 06/02/19 07:30 52 L 16 98 06/02/19 07:00 96.8 F L 53 L 18 170/89 H PG Care Time/CCT Total # of Minutes Spent Total Time Spent with Patient: Total time spent is greater than 50% in coordination of care (as documented) at patient's floor/unit and/or counseling patient:
[2019-06-02] MEDS: DOCUSATE SODIUM/SENNA 50/8.6MG TAB PO SCH (20:06)
[2019-06-02] MEDS: ATORVASTATIN 40 MG TAB PO SCH (20:06)
[2019-06-02] MEDS: ZOLPIDEM TARTRATE 10 MG TAB PO SCH (22:16)
[2019-06-03] MEDS: POLYETHYLENE (MIRALAX) 17 GM PACK PO SCH ×4 (05:57→23:27)
--- NOTE | 2019-06-03 06:24 | Orthopedic Progress Note ---
Date of Service June 03, 2019 Assessment & Plan (1) Spinal stenosis of cervical region: At this point continue with GI DVT prophylaxis and pain control measures. We will keep him on his liquid diet at this point. We will maintain his drain and progressing with physical therapy and Occupational Therapy. We will continue to follow along and contact us if there are any complications. Subjective Patient was seen bedside in room 277. He is postop day #2 status post anterior cervical corpectomy and fusion. He is not having much in way of pain. Still has weakness in his upper extremities however. He denies any other new numbness, tingling, paresthesias. He is not having difficulty swallowing. Physical Exam Physical Exam: On exam he is alert and oriented. His KRYSTINA drains in place and is holding suction. His collar is in place and well fitting. His dressings clean dry and intact. His upper extremity motor exam reveals no focal atrophy there is weakness in the deltoid and bicep on the left-hand side as compared to right with a strength of 3 out of 5. Sensation is intact to light touch. His calves are supple nontender his abdomen soft and nontender. Results & Data Vital Signs (Past 12 Hours) Vital Signs Temp Pulse Pulse Resp BP Pulse Ox Pulse Ox 06/03/19 03:22 54 L 16 97 06/03/19 00:00 53 L 94 06/02/19 22:49 36.8 C 55 L 18 149/79 H 96 06/02/19 22:46 52 L 16 95 06/02/19 20:01 57 L 17 95 06/02/19 19:26 36.7 C 66 18 156/81 H 95
[2019-06-03 07:30] LABS: Hematocrit (blood only) 36.8 % (42-52); Hemoglobin 11.8 g/dL (14.0-18.0); Mean Corpuscular Hemoglobin 29.3 pg (25-34); Mean Corpuscular Hgb Conc 32.1 g/dL (32-36); Mean Corpuscular Volume 91.3 fL (80-100); RDW Coefficient of Variation 15.2 % (11.5-14.5); RDW Standard Deviation 51.1 fL (36.4-46.3); Red Blood Count 4.03 M/uL (4.7-6.1)
[2019-06-03 07:32] LABS: Mean Platelet Volume 10.1 fL (7.4-10.4); Platelet Count 98 K/uL (130-400)
[2019-06-03 07:57] LABS: BUN Creatinine Ratio 24.8 (10-20); Calcium 8.9 mg/dl (8.5-10.1); Creatinine Clr Calc Pharmacy 55.5 ml/min; Est GFR (African American) 74.8; Est GFR (Non-African American) 64.6; Potassium 3.6 mmol/L (3.5-5.1)
[2019-06-03] MEDS: INSULIN ASPART 100 UNITS/ML 3 ML PEN SC SCH ×3 (07:57→21:49)
[2019-06-03] MEDS: METOPROLOL TARTRATE 25 MG TAB PO SCH ×2 (07:59→21:30)
[2019-06-03] MEDS: ASPIRIN 81 MG ECTAB PO SCH (08:00)
[2019-06-03] MEDS: FAMOTIDINE 20 MG TAB PO SCH (08:01)
[2019-06-03] MEDS: TERAZOSIN HCL 5 MG CAP PO SCH (08:02)
[2019-06-03] MEDS: lisinopriL 10 MG TAB PO SCH (08:03)
[2019-06-03] MEDS: BUDESONIDE/FORMOTEROL FUMARATE 160/4.5 60 PUFFS/INHALER INH SCH ×2 (08:10→19:43)
--- NOTE | 2019-06-03 09:39 | Pharmacy Report ---
Pharmacy Glycemic Sign Off Nt - Date of Service June 03, 2019 - Assessment & Plan ASSESSMENT: * Pharmacy was consulted by Dr Hooks on 06/02/19 for glycemic control and to write orders per [facility] inpatient glycemic control protocol. * Major changes made by pharmacy to antidiabetic regimen include: * n/a. Started bolus insulin (SSI only, no CHO coverage) * No history of diabetes. He received a few doses of Decadron on 06/01 and 06/02, which caused fasting BSG to increase (173 mg/dL x1 ). * No insulin needed over the past 24hrs- do not anticipate further hyperglycemia now that DXM DC * Patient has been receiving/requiring 0 units of insulin per day for adequate glycemic control * BSGs ranging 104 - 167 mg/dl * Regimen has only required minor adjustments over the past 48hrs to achieve this level of control * Do not anticipate further changes in patient status that would quickly deteriorate glycemic control (i.e. patient to be NPO for upcoming procedure, steroids tapering, starting tube feedings, etc). PLAN FOR INPATIENT GLYCEMIC CONTROL: No changes needed to current regimen. * Continue NovoLog per scale ACHS/Q6hrs while NPO * Goal range = 110 - 150 mg/dl * CF = 25 mg/dl/unit * CR = 1 unit for ever -- g CHO consumed * Pharmacy is signing off of glycemic consult and will no longer be making adjustments to inpatient regimen. Please feel free to re-consult if needed. Thank you.
[2019-06-03] MEDS ORDERED: bisacodyL 10 MG SUPP PR PRN (14:33)
[2019-06-03] MEDS ORDERED: INSULIN ASPART 100 UNITS/ML 3 ML PEN SC SCH (16:48)
[2019-06-03] MEDS ORDERED: GLUCOSE 40% GEL 15 GM TUBE PO PRN (17:00)
[2019-06-03] MEDS ORDERED: DEXTROSE 50% 50 ML SYRINGE IV PRN (17:00)
[2019-06-03] MEDS ORDERED: CARBOHYDRATES FOR HYPOGLYCEMIA PO PRN (17:00)
[2019-06-03] MEDS ORDERED: GLUCAGON FOR INJ 1 MG VIAL IM PRN (17:00)
[2019-06-03] MEDS ORDERED: GLUCOSE 10 TABS/TUBE PO PRN (17:00)
[2019-06-03] MEDS ORDERED: COUGH DROP (SUGAR FREE) LOZ 24 LOZ/1 BOX BUCCAL ONE (19:01)
[2019-06-03] MEDS: ATORVASTATIN 40 MG TAB PO SCH (21:29)
[2019-06-03] MEDS: ZOLPIDEM TARTRATE 10 MG TAB PO SCH (21:29)
[2019-06-03] MEDS: DOCUSATE SODIUM/SENNA 50/8.6MG TAB PO SCH (21:29)
--- NOTE | 2019-06-03 23:22 | Hospitalist Progress Note ---
Date of Service June 03, 2019 Assessment & Plan (1) Cervical spinal cord compression: POD #2 s/p cervical spinal cord decompression with C4 corpectomy. Management as per Dr Juan with dexamethasone and pain regimen (2) Paroxysmal atrial fibrillation: will continue metoprolol. Ok if heart rate in low 40s at times if asymptomatic. Not for full anticoagulation as per cardiology due to prior bleeds (3) Essential hypertension: Stable continue home meds (4) Coronary artery disease: Stable. Continue home meds (5) CHF (congestive heart failure): Stable. Continue home meds. No sign of exacerbation (6) Benign prostate hyperplasia: Stable. Continue home meds (7) Asthma: Stable. Continue home meds (8) DVT prophylaxis: SCDs Chemical prophylaxis indicated when cleared by surgery. Code - DNR as discussed with patient today Subjective Patient seen in afternoon with front of his neck collar off. Feels some congestion but reports it is not unusual for him and he relates if to his asthma. No shortness of breath or chest pain. Reports tingling has markedly improved in left hand and resolved in right hand. He has fully tested his power yet. POLST form noted DNR therefore this was discussed with the patient and he confirmed currently he also wishes to be not for resuscitation in the event of a cardiac arrest. Review of Systems Review of Systems: All systems reviewed & are unremarkable except as noted in HPI & below Physical Exam Constitutional: well developed and + obese; no acute distress ENMT: external ear and nose normal, oropharynx normal Neck: trachea midline KRYSTINA drain in place Respiratory: normal respiratory effort and + cough (dry); no respiratory distress and no labored breathing Auscultation: lungs clear to auscultation bilaterally; no crackles, no rales, no rhonchi and no wheezes Cardiovascular: Rate/Rhythm: + irregularly irregular Heart Sounds: + murmur Vessels: no carotid bruit Extremities: + edema (2+ Right > 1+ left (pt reports chronic due to prior trauma on this side)); no calf tenderness Gastrointestinal (Abdomen): Inspection/Auscultation: + abdomen distended and normal bowel sounds Percussion/Palpation: abdomen soft; abdomen nontender and no guarding Neurologic: awake; not confused Speech / Cognition: normal speech Psychiatric: Orientation: alert and oriented x 3 Results & Data Vital Signs (Past 12 Hours) Vital Signs Temp Pulse Pulse Resp BP BP Pulse Ox 10/05/19 19:35 58 L 16 97 06/03/19 19:06 98.1 F 66 16 158/79 H 95 06/03/19 18:36 53 L 164/92 H 06/03/19 16:00 46 L 14 97 06/03/19 15:11 97.7 F 42 L 16 154/87 H 98 06/03/19 13:29 60 58 L PG Care Time/CCT Total # of Minutes Spent Total Time Spent with Patient: Total time spent is greater than 50% in coordination of care (as documented) at patient's floor/unit and/or counseling patient:
[2019-06-04] MEDS: POLYETHYLENE (MIRALAX) 17 GM PACK PO SCH (02:19)
[2019-06-04 05:25] LABS: INR 1.1 (0.9-1.1); Prothrombin Time 11.4 Seconds (9.0-12.0)
[2019-06-04 05:26] LABS: Basophils # (auto) 0.03 K/uL (0-0.2); Basophils % (auto) 0.4 %; Eosinophils # (auto) 0.14 K/uL (0-0.5); Eosinophils % (auto) 1.9 %; Hematocrit (blood only) 35.6 % (42-52); Hemoglobin 11.6 g/dL (14.0-18.0); Immature Granulocytes # (auto) 0.01 K/uL (0.00-0.02); Immature Granulocytes % (auto) 0.1 %; Lymphocytes # (auto) 0.83 K/uL (1.2-3.4); Lymphocytes % (auto) 11.1 %; Mean Corpuscular Hemoglobin 29.7 pg (25-34); Mean Corpuscular Hgb Conc 32.6 g/dL (32-36); Mean Platelet Volume 9.8 fL (7.4-10.4); Monocytes # (auto) 0.65 K/uL (0.11-0.59); Monocytes % (auto) 8.7 %; Neutrophils # (auto) 5.85 K/uL (1.4-6.5); Neutrophils % (auto) 77.8 %; Platelet Count 103 K/uL (130-400); RDW Coefficient of Variation 15.4 % (11.5-14.5); RDW Standard Deviation 51.5 fL (36.4-46.3); Red Blood Count 3.91 M/uL (4.7-6.1); White Blood Count 7.51 K/uL (4.8-10.8)
[2019-06-04 05:46] LABS: Albumin Level 2.9 gm/dl (3.4-5.0); BUN Creatinine Ratio 24.5 (10-20); Calcium 8.2 mg/dl (8.5-10.1); Creatinine Clr Calc Pharmacy 58.4 ml/min; Est GFR (African American) 79.5; Est GFR (Non-African American) 68.6; Potassium 4.1 mmol/L (3.5-5.1)
[2019-06-04 05:48] LABS: Albumin Globulin Ratio 0.9 (0.9-2); Bilirubin,Total 0.8 mg/dl (0.2-1); Globulin 3.1 gm/dl (2.5-4.0)
[2019-06-04] MEDS: ASPIRIN 81 MG ECTAB PO SCH (07:32)
[2019-06-04] MEDS: FAMOTIDINE 20 MG TAB PO SCH (07:32)
[2019-06-04] MEDS: lisinopriL 10 MG TAB PO SCH (07:32)
[2019-06-04] MEDS: METOPROLOL TARTRATE 25 MG TAB PO SCH ×2 (07:32→21:32)
[2019-06-04] MEDS: TERAZOSIN HCL 5 MG CAP PO SCH (07:33)
[2019-06-04] MEDS: BUDESONIDE/FORMOTEROL FUMARATE 160/4.5 60 PUFFS/INHALER INH SCH ×2 (07:33→21:32)
--- NOTE | 2019-06-04 11:34 | Orthopedic Progress Note ---
Date of Service June 04, 2019 Assessment & Plan (1) Cervical cord compression with myelopathy: At this time we will change his dressing DC drain today. Continue physical therapy as tolerated. Most likely he would be a candidate to return to his correction of [place] which he believes has both occupational as well as physical therapy. This may be adequate. Present on Admission?: Yes Subjective Patient's swallowing well. No hoarseness. Arm symptoms are improving dramatically. He is ambling with a walker. Physical Exam Physical Exam: On exam he is still quite weak with bilateral biceps however grasp is improving. Course he is walking now. This is significant improvement from his preoperative status. Results & Data Vital Signs (Past 12 Hours) Vital Signs Temp Pulse Resp BP BP Pulse Ox 06/04/19 11:24 61 14 96 06/04/19 07:24 70 14 97 06/04/19 06:44 161/96 H 06/04/19 06:39 36.9 C 59 L 19 176/92 H 98 06/04/19 05:25 147/77 H 06/04/19 03:13 59 L 161/85 H 06/04/19 03:04 36.9 C 65 16 181/92 H 95 06/04/19 02:50 71 17 97
[2019-06-04] MEDS: ATORVASTATIN 40 MG TAB PO SCH (21:31)
[2019-06-04] MEDS: DOCUSATE SODIUM/SENNA 50/8.6MG TAB PO SCH (21:34)
[2019-06-04] MEDS: ZOLPIDEM TARTRATE 10 MG TAB PO SCH (21:49)
--- NOTE | 2019-06-04 22:56 | Hospitalist Progress Note ---
Date of Service June 04, 2019 Assessment & Plan (1) Cervical spinal cord compression: POD #3 s/p cervical spinal cord decompression with C4 corpectomy. Management as per Dr Juan with dexamethasone and pain regimen DVT prophylaxis to start tomorrow as per Dr Juan (2) Paroxysmal atrial fibrillation: will continue metoprolol. Ok if heart rate in low 40s at times if asymptomatic. Not for full anticoagulation as per cardiology due to prior bleeds - although patient reports no GI bleeds only from when he clipped his toe nail but had to come to ER to stop the bleeding (3) Essential hypertension: Consistently elevated while here even now he is off steroids. Will increase lisinopril 10 -> 20mg (4) Coronary artery disease: Stable. Continue home meds (5) CHF (congestive heart failure): Stable. Continue home meds. No sign of exacerbation (6) Benign prostate hyperplasia: Stable. Continue home meds (7) Asthma: Stable. Continue home meds (8) DVT prophylaxis: SCDs Chemical prophylaxis indicated when cleared by surgery - nurse discussed with Dr Juan and reported ok to start tomorrow (06/05) Code - DNR Subjective Arm tingling resolved bilaterally. No shortness of breath or chest pain. Still has phlegm in back of mouth. Denies any GERD. No chest pain or shortness of breath. Review of Systems Review of Systems: All systems reviewed & are unremarkable except as noted in HPI & below Physical Exam Constitutional: well developed and + obese; no acute distress Eyes: no conjunctival abnormality and normal pupil size ENMT: external ear and nose normal, oropharynx normal Neck: trachea midline Drain removed, dressing in place, C/D/I Respiratory: normal respiratory effort and + cough (dry); no respiratory distress and no labored breathing Auscultation: lungs clear to auscultation bilaterally (anteriorly); no crackles, no rales, no rhonchi and no wheezes Cardiovascular: Rate/Rhythm: + irregularly irregular Heart Sounds: + murmur Vessels: no carotid bruit Extremities: + edema (2+ Right > 1+ left (chronic due to prior trauma on this side)); no calf tenderness Gastrointestinal (Abdomen): Inspection/Auscultation: normal bowel sounds Percussion/Palpation: abdomen soft; abdomen nontender and no guarding Neurologic: awake; not confused Speech / Cognition: normal speech Mo tor/Sensory: + sensory deficit (stocking distribution leg numbness) Psychiatric: Orientation: alert and oriented x 3 Results & Data Vital Signs (Past 12 Hours) Vital Signs Temp Pulse Resp BP Pulse Ox 06/04/19 20:00 71 18 96 06/04/19 15:48 60 14 97 06/04/19 15:30 98.2 F 66 16 164/81 H 96 06/04/19 11:24 61 14 96 PG Care Time/CCT Total # of Minutes Spent Total Time Spent with Patient: Total time spent is greater than 50% in coordination of care (as documented) at patient's floor/unit and/or counseling patient:
[2019-06-05] MEDS: TERAZOSIN HCL 5 MG CAP PO SCH (08:18)
[2019-06-05] MEDS: ASPIRIN 81 MG ECTAB PO SCH (08:18)
[2019-06-05] MEDS: BUDESONIDE/FORMOTEROL FUMARATE 160/4.5 60 PUFFS/INHALER INH SCH ×2 (08:19→21:59)
[2019-06-05] MEDS: METOPROLOL TARTRATE 25 MG TAB PO SCH ×2 (08:19→22:03)
[2019-06-05] MEDS: lisinopriL 20 MG TAB PO SCH (08:23)
[2019-06-05] MEDS: FAMOTIDINE 20 MG TAB PO SCH (08:26)
[2019-06-05 08:45] LABS: Hemoglobin 11.6 g/dL (14.0-18.0); Mean Corpuscular Hemoglobin 29.4 pg (25-34); Mean Corpuscular Hgb Conc 32.2 g/dL (32-36); Mean Corpuscular Volume 91.1 fL (80-100); RDW Coefficient of Variation 15.1 % (11.5-14.5); RDW Standard Deviation 50.8 fL (36.4-46.3); Red Blood Count 3.95 M/uL (4.7-6.1); White Blood Count 13.47 K/uL (4.8-10.8)
[2019-06-05 09:12] LABS: Mean Platelet Volume 9.7 fL (7.4-10.4); Platelet Count 97 K/uL (130-400)
[2019-06-05 09:17] LABS: BUN Creatinine Ratio 17.8 (10-20); Calcium 8.3 mg/dl (8.5-10.1); Creatinine Clr Calc Pharmacy 49.3 ml/min; Est GFR (African American) 64.8; Est GFR (Non-African American) 55.9; Potassium 3.5 mmol/L (3.5-5.1)
--- NOTE | 2019-06-05 09:32 | Cardiology Progress Note ---
Date of Service June 05, 2019 Assessment & Plan (1) Ischemic cardiomyopathy: Echocardiogram performed preoperatively noted mildly depressed ejection fraction at 45% with hypokinesis of the inferolateral wall. The patient remains compensated. (2) Coronary artery disease: The patient underwent a 3 vessel bypass in January 2015. No angina pectoris since that time. (3) Paroxysmal atrial fibrillation: The patient is not a candidate for long-term anticoagulation due to spontaneous hemorrhages. (4) Essential hypertension: Adequate control on current medical regimen. (5) Cervical spinal cord compression: The patient underwent an anterior cervical corpectomy by Dr. Juan. Subjective The patient is resting comfortably in bedside chair without complaints of chest pain or dyspnea. Physical Exam Physical Exam: In general this is a well-developed well-nourished white male in no acute distress. HEENT exam is negative. Neck is in a brace. Cardiovascular exam reveals an irregular rhythm with distant heart sounds. Lungs are clear without rales, rhonchi, or wheezes. Abdomen is soft and nontender without bruits. Extremities reveal intact radial artery and posterior tibial pulses bilaterally. There is no peripheral edema. Results & Data Vital Signs (Past 12 Hours) Vital Signs Temp Pulse Pulse Resp BP Pulse Ox 06/05/19 07:23 71 16 96 06/05/19 06:52 37.1 C 69 16 151/81 H 95 06/05/19 03:24 75 16 90 06/05/19 02:54 36.8 C 88 18 152/82 H 93 06/04/19 23:51 37.2 C 84 82 20 158/77 H 93 06/04/19 23:34 38.6 C H 87 16 186/102 H 92 06/04/19 23:10 99 H 18 90 PG Care Time/CCT Total # of Minutes Spent Total Time Spent with Patient: Total time spent is greater than 50% in coordination of care (as documented) at patient's floor/unit and/or counseling patient:
--- NOTE | 2019-06-05 09:45 | Hospitalist Progress Note ---
Date of Service June 05, 2019 Assessment & Plan (1) Cervical spinal cord compression: * POD #4 s/p cervical spinal cord decompression with C4 corpectomy. * Management as per Dr Juan with dexamethasone and pain regimen * Patient with fever overnight, Tmax 38.6 on 06/04- previous CXR 05/31 with bibasilar linear densities that favor scarring or subsegmental atelectasis * UA pending- negative for acute infectious process, however + RBC, urobilinogen, hyaline casts- patient does have history of kidney stones 20 years ago, but is asymptomatic. No alvarado with recent procedure. Will need further work-up for microscopic hematuria. * CXR with patchy left basilar density- could represent atelectasis or pneumonia- given fever and elevated WBC, will initiate oral levaquin x 7 days-- QTc on EKG 05/31 415ms. (2) Paroxysmal atrial fibrillation: * Will continue metoprolol. * [id number] score 5-- however, not fully anticoagulated per cardiology due to history of bleeding/nosebleeds. * Per cardiology note, patient not candidate. * Per conversation with Ortho, patient may be discharged on daily ASA (3) Essential hypertension: * Stable * BP was consistently elevated during admission, even after steroids disconti nued- * Lisinopril increased from 10mg to 20mg daily. * Current BP 121/65 (4) Coronary artery disease: * Stable. * Continue home meds- Atorvastatin 80mg, ASA 81mg, Lisinopril 10mg, Lasix 40mg (5) CHF (congestive heart failure): * Stable * Continue home meds- Atorvastatin 80mg, ASA 81mg, Lasix 40mg. Lisinopril incr eased to 20mg for better BP control. * No sign of exacerbation at this time (6) Benign prostate hyperplasia: * Stable. * Continue home meds- terazosin (7) Asthma: * Stable. * Continue home meds (8) DVT prophylaxis: * SCDs * Chemical prophylaxis indicated when cleared by surgery - per discussion with Dr. Juan, patient may be discharged on current ASA 81mg Dispo: discharge to [place] with PT/OT services later this evening or tomorrow Supervising Physician Co-Signing Physician Notes Attending Attestation: Pt seen/examined, chart reviewed, care plan d/w KARIN Chua. I agree w/ the pino components of her documentation. Pt reports hoarse voice, lack of appetite, and some mild difficulty with swallowing. No dyspnea. Some cough with sputum production. VSS O2 sats wnl gen - NAD neck - dressing anterior neck HEENT - hoarse voice, MMM heart - s1 s2, RRR, no murmur lungs - decreased expiratory phase, no discrete wheeze or rales abd - soft NT ext - no edema neuro - strength 5/5 x 4 exts A/P: 1. C4-C5 cord compression s/p C4 corpectomy - POD #4 2. hoarse voice - likely due to resolving edema of neck from #1 3. mild dysphagia - also 2nd to #1 - speech therapy consult in am 4. fever last pm - cxr with possible LLL infiltrate - in light of pulmonary symptoms could represent early pneumonia; agree with low threshold for antibiotics 5. h/o asthma - in light of cough, congestion -- start scheduled bronchodilators 6. anorexia - could be 2nd to #4 - follow would NOT d/c home today keep overnight for additional testing and observation Austin Salgado MD Subjective Patient evaluated at bedside this morning. Patient states he had some right hip pain last night, but with medication x 1, he has not had recurrence of the pain. He states he has been passing gas, and had a bowel movement last night. He denies any hematochezia or melena, however states he did not look and was not told otherwise by nursing. The patient continues to express he would like to return to [facility] and states they have PT/OT available at that facility upon discharge. The patient denies any chest pain, shortness of breath, abdominal pain, dysuria or chills at this time. Of note, he states he did feel hot last night at one point, but states he thought the temperature was up in the room. Review of Systems Review of Systems: All systems reviewed & are unremarkable except as noted in HPI & below Physical Exam Constitutional: well developed and + obese; no acute distress Eyes: no conjunctival abnormality and normal pupil size ENMT: external ear and nose normal, oropharynx normal Neck: trachea midline Respiratory: normal respiratory effort; no respiratory distress, no labored breathing and no cough Auscultation: lungs clear to auscultation bilaterally (anteriorly); no crackles and no wheezes Cardiovascular: Rate/Rhythm: + irregularly irregular Heart Sounds: + murmur Vessels: no carotid bruit Extremities: + edema (1+ Right > left (chronic due to prior trauma on this side)); no calf tenderness Gastrointestinal (Abdomen): Inspection/Auscultation: normal bowel sounds Percussion/Palpation: abdomen soft; abdomen nontender and no guarding Neurologic: awake; not confused Speech / Cognition: normal speech Motor/Sensory: + sensory deficit (stocking distribution leg numbness) Psychiatric: Orientation: alert and oriented x 3 Results & Data Vital Signs (Past 12 Hours) Vital Signs Temp Pulse Pulse Resp BP Pulse Ox 06/05/19 07:23 71 16 96 06/05/19 06:52 37.1 C 69 16 151/81 H 95 06/05/19 03:24 75 16 90 06/05/19 02:54 36.8 C 88 18 152/82 H 93 06/04/19 23:51 37.2 C 84 82 20 158/77 H 93 06/04/19 23:34 38.6 C H 87 16 186/102 H 92 06/04/19 23:10 99 H 18 90 Laboratory Results 06/05/19 06/05/19 Range/Units 08:31 08:31 WBC 13.47 H (4.8-10.8) K/uL RBC 3.95 L (4.7-6.1) M/uL Hgb 11.6 L (14.0-18.0) g/dL Hct 36.0 L (42-52) % MCV 91.1 (80-100) fL MCH 29.4 (25-34) pg MCHC 32.2 (32-36) g/dL RDW Std Deviation 50.8 H (36.4-46.3) fL RDW Coeff of Jes 15.1 H (11.5-14.5) % Plt Count 97 L (130-400) K/uL MPV 9.7 (7.4-10.4) fL Sodium 140 (136-145) mmol/L Potassium 3.5 (3.5-5.1) mmol/L Chloride 106 (98-107) mmol/L Carbon Dioxide 27 (21-32) mmol/L Anion Gap 7.0 (3-11) BUN 21 H (7-18) mg/dl Creatinine 1.16 (0.6-1.4) mg/dl Est Cr Clr Drug Dosing 49.3 ml/min Est GFR ( Amer) 64.8 Est GFR (Non-Af Amer) 55.9 BUN/Creatinine Ratio 17.8 (10-20) Glucose 188 H (70-99) mg/dl Calcium 8.3 L (8.5-10.1) mg/dl PG Care Time/CCT Total # of Minutes Spent Total Time Spent with Patient: Total time spent is greater than 50% in coordination of care (as documented) at patient's floor/unit and/or counseling patient:
--- NOTE | 2019-06-05 14:07 | Orthopedic Progress Note ---
Date of Service June 05, 2019 Assessment & Plan (1) Cervical cord compression with myelopathy: This time is progressed appropriately. He may discharge to his home when cleared by medicine. Present on Admission?: Yes Subjective Patient is swallowing well. No hoarseness. He feels very comfortable. Physical Exam Physical Exam: Patient is in the chair at the bedside. He is demonstrating improvement of strength in the upper extremities. He has been walking with physical therapy. Results & Data Vital Signs (Past 12 Hours) Vital Signs Temp Pulse Pulse Resp BP BP Pulse Ox 06/05/19 13:56 37.1 C 84 54 L 18 151/81 H 161/96 H 93 06/05/19 11:24 54 L 18 93 06/05/19 07:23 71 16 96 06/05/19 06:52 37.1 C 69 16 151/81 H 95 06/05/19 03:24 75 16 90 06/05/19 02:54 36.8 C 88 18 152/82 H 93
[2019-06-05 14:49] LABS: Appearance Urine Clear (Clear); Bacteria Urine Automated Negative (Negative); Bilirubin Urine Negative (Negative); Blood Urine 1+ (Negative); Color Urine Dark Yellow; Glucose Urine UA Negative (Negative); Ketones Urine Negative (Negative); Leukocyte Esterase Urine Negative (Negative); Nitrite Urine Negative (Negative); Protein Urine 1+ (Negative); Specific Gravity Urine 1.021 (1.000-1.030); Urobilinogen Urine Positive (Negative); pH Urine 5.5 (4.5-7.5)
--- NOTE | 2019-06-05 16:00 | XRay Report ---
XR chest 1V portable HISTORY: fever, elevated white count COMPARISON: Chest 05/31/2019. FINDINGS: No pneumothorax. No pleural effusions. The heart remains mildly enlarged. Thoracic aortic s tent is again noted. Cervical spinal fusion hardware and poststernotomy changes. There is a patchy le ft basilar density which is similar to the prior study. No evidence for pulmonary edema. IMPRESSION: 1. Stable mild cardiomegaly. 2. Patchy left basilar density. This could represent atelectasis or pneumonia. Electronically signed by: Manjinder Easley M.D. 06/05/2019 3:59 PM
[2019-06-05] MEDS ORDERED: levoFLOXacin 750 MG TAB PO STA (16:24)
--- NOTE | 2019-06-05 16:41 | Discharge Summary ---
Date of Service June 05, 2019 Admission HPI Per Admitting Provider Mr. Salazar is a pleasant 89 yo M with extensive PMH including hairy cell leukemia, paroxysmal afib, thrombocytopenia, gerd, BPH, CAD and CABG, who presented to the ED for upper extremity weakness for the past few weeks. He says the weakness started about 3 weeks ago with having general fatigue in lifting his arms above his head but steadily worsened to the point where he was having issues lifting his arms high enough to brush his hair. He attests to feelings of numbness and tingling in both hands with it being worse more prominent in the left. He also attests to recently losing his sense of balance in his feet. He is unable to stand for periods of time because his feet feel like cotton and he is unsure of where he is putting them. He denies any pain, headache, blurring or changing of vision. C-spine MRI in the ED notable for "C3-C4: There is marked disc space narrowing with posterior disc osteophyte complex. This indents the ventral aspect of the cord. There is severe central canal narrowing. Severe left and moderate to severe right neural foraminal narrowing is noted. C4-C5: There is disc space narrowing with posterior disc osteophyte complex and ligamentous hypertrophy that result in severe central canal narrowing with associated cord edema. Severe bilateral neural foraminal stenosis is noted due to facet arthrosis and uncovertebral hypertrophy." Admission Exam Per Admitting Provider Constitutional: well developed, well nourished, + obese, cooperative and comfortable Respiratory: normal respiratory effort and able to speak in complete sentences; no respiratory distress, no labored breathing and no cough Auscultation: lungs clear to auscultation bilaterally; no crackles, no rales, no rhonchi and no wheezes Cardiovascular: Rate/Rhythm: regular rate and + irregularly irregular Heart Sounds: no abnormal opening sounds, no click, no gallop and no murmur Palpation: + heave Extremities: + edema (right lower extremity); no calf tenderness Gastrointestinal (Abdomen): Inspection/Auscultation: + abdomen distended and normal bowel sounds Percussion/Palpation: abdomen soft; abdomen nontender Neurologic: Unable to lift upper extremities up, elbows remain by chest wall. Able to shrug both shoulders equally against resistance. Strength in both hands equal for system integration engineer, pushing and pulling. Sensation intact throughout dermatomes of arms bilaterally including axillary nerve. Able to flex and extend wrists slowly with concentration, has trouble with wrist circumflexion. Adduction of fingers against force stronger than abduction against force bilaterally. Able to extend neck laterally to both sides without pain or restriction. Principal Diagnosis Cervical Cord Compression with Myelopathy, level of C4 Discharge Exam Constitutional well developed and + obese; no acute distress Eyes no conjunctival abnormality and normal pupil size ENMT external ear and nose normal, oropharynx normal Neck trachea midline Respiratory normal respiratory effort; no respiratory distress, no labored breathing and no cough Auscultation: lungs clear to auscultation bilaterally (anteriorly); no crackles and no wheezes Cardiovascular Rate/Rhythm: + irregularly irregular Heart Sounds: + murmur Vessels: no carotid bruit Extremities: + edema (1+ Right > left (chronic due to prior trauma on this side)); no calf tenderness Gastrointestinal (Abdomen) Inspection/Auscultation: normal bowel sounds Percussion/Palpation: abdomen soft; abdomen nontender and no guarding Neurologic awake; not confused Speech / Cognition: normal speech Motor/Sensory: + sensory deficit (stocking distribution leg numbness) Psychiatric Orientation: alert and oriented x 3 Discharge Data Allergies Allergy/AdvReac Type Severity Reaction Status Date / Time No Known Allergies Allergy Verified 05/31/19 19:31 Consultations 05/31/19 22:55 Consult Cardiology Routine Consult Orthopedic Surgery Routine 06/01/19 08:02 Consult Anesthesiology Stat 06/01/19 09:34 Consult Cardiology Stat Procedures Performed Operation Date: 06/01/19 12:00 Actual Procedures p C4 Cervical Corpectomy(Not Applicable) - Michael Juan DO Ordered Studies 06/01/19 FL cervical 2-3V Routine FL fluoroscopy <1hr Routine Hospital Course (1) Cervical spinal cord compression: * POD #4 s/p cervical spinal cord decompression with C4 corpectomy. * Management as per Dr Juan with dexamethasone and pain regimen * Patient with fever overnight, Tmax 38.6 on 06/04- previous CXR 05/31 with bibasilar linear densities that favor scarring or subsegmental atelectasis * UA pending- negative for acute infectious process, however + RBC, urobilinogen, hyaline casts- patient does have history of kidney stones 20 years ago, but is asymptomatic. No alvarado with recent procedure. Will need further work-up for microscopic hematuria. * CXR with patchy left basilar density- could represent atelectasis or pneumonia- given fever and elevated WBC, will initiate oral levaquin x 7 days-- QTc on EKG 05/31 415ms. * --> Patient with reduced GFR-- will need to dose Levaquin 750mg Q48 hours for 7 days (2) Paroxysmal atrial fibrillation: * Will continue metoprolol. * [id number] score 5-- however, not fully anticoagulated per cardiology due to history of bleeding/nosebleeds. * Per cardiology note, patient not candidate. * Per conversation with Ortho, patient may be discharged on daily ASA (3) Essential hypertension: * Stable * BP was consistently elevated during admission, even after steroids discontinued- * Lisinopril increased from 10mg to 20mg daily. * Current BP 121/65 (4) Coronary artery disease: * Stable. * Continue home meds- Atorvastatin 80mg, ASA 81mg, Lisinopril 10mg, Lasix 40mg (5) CHF (congestive heart failure): * Stable * Continue home meds- Atorvastatin 80mg, ASA 81mg, Lasix 40mg. Lisinopril increased to 20mg for better BP control. * No sign of exacerbation at this time (6) Benign prostate hyperplasia: * Stable. * Continue home meds- terazosin (7) Asthma: * Stable. * Continue home meds (8) DVT prophylaxis: * SCDs * Chemical prophylaxis indicated when cleared by surgery - per discussion with Dr. Juan, patient may be discharged on current ASA 81mg Dispo: discharge to [facility] with PT/OT services later this evening or tomorrow Discharge Plan Discharge Items Patient Disposition: Personal Custodial Reason For Visit: C4-C5 CORD COMPRESSION AND EDEMA Discharge Diagnosis: C4-C5 Cord Compression Activity: Per Instructions section Activity Comment: As per ortho instructions Non-emergency contact: Primary Care Provider Call non-emergency contact if: you have any medication questions, your symptoms worsen and your pain is not controlled Follow-up/Referrals: Abelardo Kenney MD [Primary Care Provider] - 06/08/19 1:00 pm (Please, follow up at Dr. Kenney's office with Brooke Blount PA-C on June 08 at 1:00 pm. If you have any questions, call their office at [phone].) Michael Juan, DO [Surgeon] - (Please, follow up with Dr. Juan. *A nurse from his office will call you with the appointment information. If you have any questions, call the office at [phone]. ) Diet: Carb Consistent or DM2 and Heart Healthy Addtl Attending Provider Instructions: Please see below regarding discharge instructions related to your procedure. You will need a follow-up appointment in [address] Juan. You are being given a prescription for Levaquin (levofloxacin) for treatment of pneumonia. With your reduced kidney function, you will need to take this medication EVERY OTHER day. This means that you should take a dose on: * June 07, 2019 * June 09, 2019 * June 11, 2019 to complete the course of antibiotics. Your medication Lisinopril was increased to 20mg during this admission for better control of your blood pressure. Please continue to take 20mg/day. Prior to discharge, you were found to have microscopic blood in your urine. We discussed your history of kidney stones, however this should be further evaluated on a non-emergent basis given your lack of symptoms at this time. Please follow-up with your primary care provider within the next three days to monitor your progression- you have been scheduled with Dr. Kenney for June 09. Please return to the emergency room if you have any worsening of symptoms, fever, or for any symptoms that you find concerning. Addtl Batch Mixer Provider Instructions: ACTIVITY RECOMMENDATIONS: SELF CARE INSTRUCTIONS AFTER CERVICAL FUSIONS 1. No smoking. Smoking drastically decreases the chance of a solid fusion. 2. No bending, lifting more than 5 pounds, or twisting (roll like a log when turning in bed). 3. You may shower 3 days after surgery. Thoroughly dry wound. Do not soak in the tub. 4. Cervical collar: Must be worn at all times including sleeping. You may remove the brace only to bath, eat and if you are sitting in a recliner. 5. Please walk as much as you can for exercise. Gradually increase the distance that you walk as your endurance increases. SPECIAL CARE INSTRUCTIONS: VERY IMPORTANT TO READ AND REVIEW A. Do not take any anti-inflammatory medications (i.e. Indocin, Advil, Aspirin, Naprosyn, Aleve, Motrin, etc.) as these may inhibit the chance of a solid fusion. Tylenol is okay to take. B. Your surgical incision has been closed with a cosmetic suture under the skin that will dissolve in about 6 weeks. In 14 days, you can use a pair of clean scissors and cut the suture that is left outside of the skin at the ends of your incision. C. Complications are uncommon, but please contact us if you have any signs or symptoms of: 1. wound infection (fever higher than 102.5 degrees F, redness, separation of wound, drainage, or increasing pain from the incision) 2. blood clots in legs (pain, swelling, redness and warmth in legs) 3. urinary tract infection (fever higher than 102.5 degrees, burning upon urination or increased frequency of urination) 4. nerve problems (inability to walk on your toes or heels, numbness, loss of bowel or bladder control) 5. any other symptoms that concern you. D. Please call the office at if you have any concerns or questions about your operation or recovery. MANAGING PAIN AFTER SPINAL SURGERY 1. Narcotic medication is intended for short-term use and will be provided for surgical pain. Surgical pain usually lasts for a period of 4-6 weeks. Narcotic medication includes Percocet, Vicodin, Darvocet, Tylenol #3 or Lortab. 2. Longer-term pain is more appropriately treated with non-narcotic medication such as Tylenol ES. 3. Muscle spasm is not appropriately treated with narcotics. Muscle relaxers such as Soma, Flexeril or Skelaxin can be used along with Tylenol ES. 4. Remember that we all live with some "aches and pains". This is not unusual or uncommon after an injury or as we get older. 5. We will provide appropriate medication within the normal guidelines of their prescribed use. We will also be very cautious and aware of potential abuse and extended duration of patients' medication needs. 6. Please allow 2-3 days to process refills. Prescriptions will not be mailed but must be picked up at the office. FOLLOW UP VISIT: Keep your scheduled follow-up appointment- in 2 weeks. Any questions, please call the office at . Pending Studies at Discharge: No Stand-Alone Forms: My [facility] Skilled Items Patient informed of condition?: Yes DNR: Yes Discharge Level of Care: Other Communicable Disease: No Discharge Prognosis: Stable Lines: None Urinary Catheter: No Medications and DC Order Prescriptions: New lisinopril 20 mg Tablet 20 mg PO QAM 30 Days Qty: 30 RF: 0 levofloxacin 750 mg tablet 750 mg PO DIRECTED 7 Days Qty: 3 RF: 0 Continued terazosin 10 mg capsule 10 mg PO QAM RF: 0 albuterol sulfate [ProAir HFA] 90 mcg/actuation HFA aerosol inhaler 2 puff inhalation Q4H PRN (Reason: Shortness Of Breath) RF: 0 furosemide 40 mg tablet 40 mg PO QAM RF: 0 atorvastatin 80 mg tablet 80 mg PO HS RF: 0 aspirin 81 mg Tablet,Delayed Release (Dr/Ec) 81 mg PO QAM RF: 0 zolpidem 10 mg tablet 10 mg PO HS RF: 0 metoprolol tartrate 25 mg Tablet 12.5 tab PO BID RF: 0 Symbicort 160-4.5 mcg/actuation Hfa Aerosol Inhaler 2 puff INHALATION BID RF: 0 Discontinued lisinopril 10 mg tablet 10 mg PO QAM RF: 0 Admission Data Admit Date/Time: 05/31/19 21:14 Attending Provider: Austin Salgado Admit Provider: John Schmid Primary Care Provider: Abelardo Kenney Other Providers: Misael Mauricio ; Michael Juan ; Maulik Pulido ; Tapan Smith ; Raul Forman ; Regino Vasquez ; Thiago Méndez ; Selvin Kimble Jr ; Jim Izaguirre ; Lorin Hoang ; Shahrzad Tran ; Dallin Stephenson ; Dallin Garcia ; Chester Cross ; Murray Lambert ; Jennifer Almodovar ; Tiarra Blackman Other Interventions: Discharge Summary Assessment (RN) Last Done: 06/05/19 13:56
[2019-06-05] MEDS: ALBUTEROL 0.083% NEBU SOLN 3 ML VIAL NEB PRN ×2 (19:36→23:13)
[2019-06-05] MEDS: DOCUSATE SODIUM/SENNA 50/8.6MG TAB PO SCH (21:59)
[2019-06-05] MEDS: ATORVASTATIN 40 MG TAB PO SCH (21:59)
[2019-06-05] MEDS: ZOLPIDEM TARTRATE 10 MG TAB PO SCH (23:31)
[2019-06-06] MEDS: ALBUTEROL 0.083% NEBU SOLN 3 ML VIAL NEB PRN ×4 (03:53→15:25)
[2019-06-06 06:24] LABS: Hematocrit (blood only) 35.2 % (42-52); Hemoglobin 11.6 g/dL (14.0-18.0); Mean Corpuscular Hemoglobin 29.7 pg (25-34); RDW Coefficient of Variation 15.1 % (11.5-14.5); RDW Standard Deviation 49.8 fL (36.4-46.3); Red Blood Count 3.91 M/uL (4.7-6.1); White Blood Count 8.99 K/uL (4.8-10.8)
[2019-06-06 06:26] LABS: Mean Platelet Volume 9.6 fL (7.4-10.4); Platelet Count 99 K/uL (130-400)
[2019-06-06 07:03] LABS: BUN Creatinine Ratio 18.4 (10-20); Calcium 8.5 mg/dl (8.5-10.1); Creatinine Clr Calc Pharmacy 56.6 ml/min; Est GFR (African American) 76.6; Est GFR (Non-African American) 66.1; Potassium 3.6 mmol/L (3.5-5.1)
[2019-06-06] MEDS: ASPIRIN 81 MG ECTAB PO SCH (08:19)
[2019-06-06] MEDS: TERAZOSIN HCL 5 MG CAP PO SCH (08:19)
[2019-06-06] MEDS: METOPROLOL TARTRATE 25 MG TAB PO SCH (08:19)
[2019-06-06] MEDS: lisinopriL 20 MG TAB PO SCH (08:20)
[2019-06-06] MEDS: BUDESONIDE/FORMOTEROL FUMARATE 160/4.5 60 PUFFS/INHALER INH SCH (08:20)
[2019-06-06] MEDS: FAMOTIDINE 20 MG TAB PO SCH (08:23)
--- NOTE | 2019-06-06 09:52 | Hospitalist Progress Note ---
Date of Service June 06, 2019 Assessment & Plan (1) Cervical spinal cord compression: * POD #5 s/p cervical spinal cord decompression with C4 corpectomy. * Management as per Dr Juan with dexamethasone and pain regimen * Patient to discharge to [place] with PT/OT set-up by CM through [facility] * Patient with isolated fever / , Tmax 38.6. * Previous CXR 05/31 with bibasilar linear densities that favor scarring or subsegmental atelectasis. Repeat CXR 06/05 with patchy left basilar density- could represent atelectasis or pneumonia- given fever and elevated WBC, initiated on PO levaquin 750mg -- QTc on EKG 05/31 415ms. * --> Patient with reduced GFR-- will need to dose Levaquin 750mg Q48 hours for total course of 7 days * UA negative for acute infectious process, however + RBC, urobilinogen, hyaline casts- patient does have history of kidney stones 20 years ago, but is asymptomatic. No alvarado with recent procedure.--> Will need further work-up for microscopic hematuria. (2) Paroxysmal atrial fibrillation: * Will continue metoprolol. * [id number] score 5-- however, not fully anticoagulated per cardiology due to history of bleeding/nosebleeds. * Per conversation with Dr. Mauricio and Dr. Juan, patient may be discharged on daily ASA 81mg (3) Essential hypertension: * Elevated, but stable, despite discontinuation of steroids * Lisinopril was increased from 10mg to 20mg daily- continue 20mg daily * Current BP 167/93- may need further titration of BP medications as outpatient- follow-up with PCP scheduled for June 09. (4) Coronary artery disease: * Stable. * Continue home meds: Atorvastatin 80mg, ASA 81mg, Lisinopril 10mg, Lasix 40mg (5) CHF (congestive heart failure): * Stable * Continue home meds- Atorvastatin 80mg, ASA 81mg, Lasix 40mg. * Lisinopril increased to 20mg for better BP control. * No sign of exacerbation at this time (6) Benign prostate hyperplasia: * Stable. * Continue home meds- terazosin (7) CKD (chronic kidney disease) stage 3, GFR 30-59 ml/min: * Patient with reduced GFR 47-66 over the past year. * Stable currently, Creatinine 1.01, GFR 56. * Levaquin dosing with renal impairment changed from daily dosing to Q48 hour dosing. (8) Asthma: * Stable. * Patient given albuterol x 1 neb last evening with improved breathing per patient * Continue home meds (9) DVT prophylaxis: * SCDs * Per discussion with Dr. Mauricio, Dr. Juan -- patient may be discharged on current ASA 81mg Dispo: discharge to [place] with PT/OT services later this evening Supervising Physician Co-Signing Physician Notes Attending Attestation: Pt seen/examined, chart reviewed, care plan d/w KARIN Chua. I agree w/ the pino components of her documentation. Please see my attestation on her discharge summary with same date of service. Austin Salgado MD Subjective Patient is POD #[address] Juan- patient evaluated this morning in chair. He states swallowing has improved and his breathing feels at baseline. The patient states the nebulizer treatment last night helped him out tremendously. He denies any sputum production or continued cough at this time and is without hoarseness. Discussion was had with patient regarding speech evaluation this morning in order to clear him for discharge. He states he was able to have a bowel movement this morning but that it continues to be liquid. Agreeable to advance diet once seen by speech and then possible discharge to [place] with PT/OT set up through [facility]. Patient denies any chest pain, shortness of breath, abdominal pain, n/v, melena or hematochezia, dysuria, hematuria or flank pain. After lunch, patient re-evaluated. He states he ate about half his tray, however he did have coughing with his pudding but not with potatoes or chicken as ordered by speech. At dinner, patient swallowing much improved. Patient breathing improved after albuterol neb treatment. Patient to continue albuterol HFA 2 puffs daily for next 5 days at discharge- patient aware. Review of Systems Review of Systems: All systems reviewed & are unremarkable except as noted in HPI & below Physical Exam Constitutional: well developed and + obese; no acute distress Eyes: no conjunctival abnormality and normal pupil size ENMT: external ear and nose normal, oropharynx normal Neck: trachea midline Respiratory: normal respiratory effort; no respiratory distress, no labored breathing and no cough Auscultation: lungs clear to auscultation bilaterally (anteriorly); no crackles and no wheezes Cardiovascular: Rate/Rhythm: + irregularly irregular Heart Sounds: + murmur Vessels: no carotid bruit Extremities: + edema (1+ Right > left (chronic due to prior trauma on this side)); no calf tenderness Gastrointestinal (Abdomen): Inspection/Auscultation: normal bowel sounds Percussion/Palpation: abdomen soft; abdomen nontender and no guarding Musculoskeletal: decreased, but improving ROM b/l UE Skin: no rashes, warm and dry Neurologic: awake; not confused Speech / Cognition: normal speech Motor/Sensory: + sensory deficit (stocking distribution leg numbness) Psychiatric: Orientation: alert and oriented x 3 Results & Data Vital Signs (Past 12 Hours) Vital Signs Temp Pulse Pulse Resp BP Pulse Ox 06/06/19 07:14 72 18 95 06/06/19 06:54 36.9 C 74 18 167/93 H 95 06/06/19 03:53 74 18 96 06/05/19 23:24 36.6 C 67 16 143/78 H 94 06/05/19 23:13 66 18 96 06/05/19 22:01 78 146/85 H Laboratory Results 06/06/19 06/06/19 06/05/19 Range/Units 06:08 06:08 Unknown WBC 8.99 (4.8-10.8) K/uL RBC 3.91 L (4.7-6.1) M/uL Hgb 11.6 L (14.0-18.0) g/dL Hct 35.2 L (42-52) % MCV 90.0 (80-100) fL MCH 29.7 (25-34) pg MCHC 33.0 (32-36) g/dL RDW Std Deviation 49.8 H (36.4-46.3) fL RDW Coeff of Jes 15.1 H (11.5-14.5) % Plt Count 99 L (130-400) K/uL MPV 9.6 (7.4-10.4) fL Sodium 140 (136-145) mmol/L Potassium 3.6 (3.5-5.1) mmol/L Chloride 107 (98-107) mmol/L Carbon Dioxide 27 (21-32) mmol/L Anion Gap 6.0 (3-11) BUN 19 H (7-18) mg/dl Creatinine 1.01 (0.6-1.4) mg/dl Est Cr Clr Drug Dosing 56.6 ml/min Est GFR ( Amer) 76.6 Est GFR (Non-Af Amer) 66.1 BUN/Creatinine Ratio 18.4 (10-20) Glucose 109 H (70-99) mg/dl Calcium 8.5 (8.5-10.1) mg/dl Urine Color Dark Yellow Urine Appearance Clear (Clear) Urine pH 5.5 (4.5-7.5) Ur Specific [place] 1.021 (1.000-1.030) Urine Protein 1+ H (Negative) Urine Glucose (UA) Negative (Negative) Urine Ketones Negative (Negative) Urine Blood 1+ H (Negative) Urine Nitrite Negative (Negative) Urine Bilirubin Negative (Negative) Urine Urobilinogen Positive H (Negative) Ur Leukocyte Esterase Negative (Negative) Urine WBC (Auto) 1-5 (0-5) /hpf Urine RBC (Auto) 5-10 H (0-4) /hpf U Hyaline Cast (Auto) 5-10 H (0-5) /lpf U Epithel Cells (Auto) 10-20 H (0-5) /lpf Urine Bacteria (Auto) Negative (Negative) Diagnostic Findings 06/05/2019 XR chest 1V portable HISTORY: fever, elevated white count COMPARISON: Chest 05/31/2019. FINDINGS: No pneumothorax. No pleural effusions. The heart remains mildly enlarged. Thoracic aortic stent is again noted. Cervical spinal fusion hardware and poststernotomy changes. There is a patchy left basilar density which is similar to the prior study. No evidence for pulmonary edema. IMPRESSION: 1. Stable mild cardiomegaly. 2. Patchy left basilar density. This could represent atelectasis or pneumonia. Electronically signed by: Manjinder Easley M.D. 06/05/2019 3:59 PM PG Care Time/CCT Total # of Minutes Spent Total Time Spent with Patient: Total time spent is greater than 50% in coordination of care (as documented) at patient's floor/unit and/or counseling patient:
[2019-06-06] MEDS ORDERED: ALBUTEROL 0.5% NEB SOLN 2.5 MG/0.5 ML VIAL NEB STA (15:03)
--- NOTE | 2019-06-06 18:36 | Discharge Summary ---
Date of Service June 06, 2019 Admission HPI Per Admitting Provider Chief Complaint: weakness in upper extremities Primary Care Provider: Abelardo Kenney MD Mr. Salazar is a pleasant 89 yo M with extensive PMH including hairy cell leukemia, paroxysmal afib, thrombocytopenia, gerd, BPH, CAD and CABG, who presented to the ED for upper extremity weakness for the past few weeks. He says the weakness started about 3 weeks ago with having general fatigue in lifting his arms above his head but steadily worsened to the point where he was having issues lifting his arms high enough to brush his hair. He attests to feelings of numbness and tingling in both hands with it being worse more prominent in the left. He also attests to recently losing his sense of balance in his feet. He is unable to stand for periods of time because his feet feel like cotton and he is unsure of where he is putting them. He denies any pain, headache, blurring or changing of vision. C-spine MRI in the ED notable for "C3-C4: There is marked disc space narrowing with posterior disc osteophyte complex. This indents the ventral aspect of the cord. There is severe central canal narrowing. Severe left and moderate to severe right neural foraminal narrowing is noted. C4-C5: There is disc space narrowing with posterior disc osteophyte complex and ligamentous hypertrophy that result in severe central canal narrowing with associated cord edema. Severe bilateral neural foraminal stenosis is noted due to facet arthrosis and uncovertebral hypertrophy." Admission Exam Per Admitting Provider Constitutional: well developed, well nourished, + obese, cooperative and comfortable Respiratory: normal respiratory effort and able to speak in complete sentences; no respiratory distress, no labored breathing and no cough Auscultation: lungs clear to auscultation bilaterally; no crackles, no rales, no rhonchi and no wheezes Cardiovascular: Rate/Rhythm: regular rate and + irregularly irregular Heart Sounds: no abnormal opening sounds, no click, no gallop and no murmur Palpation: + heave Extremities: + edema (right lower extremity); no calf tenderness Gastrointestinal (Abdomen): Inspection/Auscultation: + abdomen distended and normal bowel sounds Percussion/Palpation: abdomen soft; abdomen nontender Neurologic: Unable to lift upper extremities up, elbows remain by chest wall. Able to shrug both shoulders equally against resistance. 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 Sensation intact throughout dermatomes of arms bilaterally including axillary nerve. Able to flex and extend wrists slowly with concentration, has trouble with wrist circumflexion. Adduction of fingers against force stronger than abduction against force bilaterally. Able to extend neck laterally to both sides without pain or restriction. Principal Diagnosis Cervical Spinal Cord Compression with Myelopathy Discharge Exam Constitutional well developed, well nourished and + obese; no acute distress Eyes PERRL and EOM intact bilaterally; no conjunctival abnormality and normal pupil size ENMT external ear and nose normal, oropharynx normal Mouth: + dental bridge Neck normal visual inspection and trachea midline; neck extension not limited Respiratory normal respiratory effort and able to speak in complete sentences; no respiratory distress, no labored breathing and no cough Auscultation: lungs clear to auscultation bilaterally (anteriorly); no crackles, no rales, no rhonchi and no wheezes Cardiovascular Rate/Rhythm: + irregularly irregular Vessels: no carotid bruit Extremities: + edema (1+ Right > left (chronic due to prior trauma on this side)); no calf tenderness Gastrointestinal (Abdomen) Inspection/Auscultation: normal bowel sounds Percussion/Palpation: abdomen soft; abdomen nontender and no guarding Musculoskeletal Spine: normal cervical ROM Skin no rashes, warm and dry Neurologic moves all extremities and awake; not confused Speech / Cognition: normal speech Motor/Sensory: + sensory deficit (stocking distribution leg numbness) Psychiatric Orientation: alert and oriented x 3 Discharge Data Allergies Allergy/AdvReac Type Severity Reaction Status Date / Time No Known Allergies Allergy Verified 05/31/19 19:31 Consultations 05/31/19 22:55 Consult Cardiology Routine Consult Orthopedic Surgery Routine 06/01/19 08:02 Consult Anesthesiology Stat 06/01/19 09:34 Consult Cardiology Stat Procedures Performed Operation Date: 06/01/19 12:00 Actual Procedures p C4 Cervical Corpectomy(Not Applicable) - Michael Juan DO Ordered Studies 06/01/19 FL cervical 2-3V Routine FL fluoroscopy <1hr Routine Hospital Course (1) Cervical spinal cord compression: * POD #5 s/p cervical spinal cord decompression with C4 corpectomy. * Management as per Dr Juan with dexamethasone and pain regimen * Patient to discharge to [facility] with PT/OT set-up by KENNETH through [facility] * Patient with isolated fever 06/04 , Tmax 38.6. * Previous CXR 05/31 with bibasilar linear densities that favor scarring or subsegmental atelectasis. Repeat CXR 06/05 with patchy left basilar density- could represent atelectasis or pneumonia- given fever and elevated WBC, initiated on PO levaquin 750mg -- QTc on EKG 05/31 415ms. * --> Patient with reduced GFR-- will need to dose Levaquin 750mg Q48 hours for total course of 7 days * UA negative for acute infectious process, however + RBC, urobilinogen, hyaline casts- patient does have history of kidney stones 20 years ago, but is asymptomatic. No alvarado with recent procedure.--> Will need further work-up for microscopic hematuria. (2) Paroxysmal atrial fibrillation: * Home metoprolol continued * [id number] score 5-- however, not fully anticoagulated per cardiology due to history of bleeding/nosebleeds. * Per conversation with Dr. Mauricio and Dr. Juan, patient may be discharged on daily ASA 81mg (3) Essential hypertension: * Elevated, but stable, despite discontinuation of steroids * Lisinopril was increased from 10mg to 20mg daily- continue 20mg daily * Current BP 167/93- may need further titration of BP medications as outpatient- follow-up with PCP scheduled for June 09. (4) Coronary artery disease: * Stable. * Continue home meds: Atorvastatin 80mg, ASA 81mg, Lisinopril 20mg, Lasix 40mg (5) CHF (congestive heart failure): * Stable * Continue home meds- Atorvastatin 80mg, ASA 81mg, Lasix 40mg. * Lisinopril increased to 20mg for better BP control. * No sign of exacerbation. (6) Benign prostate hyperplasia: * Stable. * Continue home meds- terazosin (7) CKD (chronic kidney disease) stage 3, GFR 30-59 ml/min: * Patient with reduced GFR 47-66 over the past year. * Stable currently, Creatinine 1.01, GFR 56. * Levaquin dosing with renal impairment changed from daily dosing to Q48 hour dosing. (8) Asthma: * Stable. * Patient given albuterol x 1 neb last evening with improved breathing per patient * Continue home meds (9) DVT prophylaxis: * SCDs * Per discussion with Dr. Mauricio, Dr. Juan -- patient may be discharged on current ASA 81mg Total Time Total Time Spent Total Time Spent (In Minutes): 60 Discharge Plan Discharge Items Patient Disposition: Personal [facility] Care Reason For Visit: C4-C5 CORD COMPRESSION AND EDEMA Discharge Diagnosis: C4-C5 Cord Compression Activity: Per Instructions section Activity Comment: As per ortho instructions Non-emergency contact: Primary Care Provider Call non-emergency contact if: you have any medication questions, your symptoms worsen and your pain is not controlled Follow-up/Referrals: Abelardo Kenney MD [Primary Care Provider] - 06/08/19 1:00 pm (Please, follow up at Dr. Kenney's office with Brooke Blount PA-C on June 08 at 1:00 pm. If you have any questions, call their office at [phone].) Michael Juan, [Surgeon] - (Please, follow up with Dr. Juan. *A nurse from his office will call you with the appointment information. If you have any questions, call the office at [phone]. ) Diet: Carb Consistent or DM2 and Heart Healthy Addtl Attending Provider Instructions: Please see below regarding discharge instructions related to your procedure. You will need a follow-up appointment in [address] Juan. You are being given a prescription for LEVAQUIN (levofloxacin) for treatment of pneumonia. With your reduced kidney function, you will need to take this medication EVERY OTHER day. This means that you should take a dose on: * June 07, 2019 * June 09, 2019 * June 11, 2019 to complete the course of antibiotics. Your medication LISINOPRIL was increased to 20mg during this admission for better control of your blood pressure. --STOP taking your 10mg Lisinopril tablets, and please instead continue to take 20mg daily as you have been receiving during this hospitalization. As for your breathing with regards to wheezing/asthma, it is recommended that you use your ALBUTEROL INHALER, 2 puffs per day for the next 3-5 days. Prior to discharge, you were found to have microscopic blood in your urine. We discussed your history of kidney stones, however this should be further evaluated on a non-emergent basis given your lack of symptoms at this time. Please follow-up with your primary care provider within the next three days to monitor your progression- you have been scheduled with Dr. Kenney for June 09. Please return to the emergency room if you have any worsening of symptoms, fever, increasing difficulty swallowing, or for any symptoms that you find concerning. Addtl Security Dispatcher Provider Instructions: ACTIVITY RECOMMENDATIONS: SELF CARE INSTRUCTIONS AFTER CERVICAL FUSIONS 1. No smoking. Smoking drastically decreases the chance of a solid fusion. 2. No bending, lifting more than 5 pounds, or twisting (roll like a log when turning in bed). 3. You may shower 3 days after surgery. Thoroughly dry wound. Do not soak in the tub. 4. Cervical collar: Must be worn at all times including sleeping. You may remove the brace only to bath, eat and if you are sitting in a recliner. 5. Please walk as much as you can for exercise. Gradually increase the distance that you walk as your endurance increases. SPECIAL CARE INSTRUCTIONS: VERY IMPORTANT TO READ AND REVIEW A. Do not take any anti-inflammatory medications (i.e. Indocin, Advil, Aspirin, Naprosyn, Aleve, Motrin, etc.) as these may inhibit the chance of a solid fusion. Tylenol is okay to take. B. Your surgical incision has been closed with a cosmetic suture under the skin that will dissolve in about 6 weeks. In 14 days, you can use a pair of clean scissors and cut the suture that is left outside of the skin at the ends of your incision. C. Complications are uncommon, but please contact us if you have any signs or symptoms of: 1. wound infection (fever higher than 102.5 degrees F, redness, separation of wound, drainage, or increasing pain from the incision) 2. blood clots in legs (pain, swelling, redness and warmth in legs) 3. urinary tract infection (fever higher than 102.5 degrees, burning upon urination or increased frequency of urination) 4. nerve problems (inability to walk on your toes or heels, numbness, loss of bowel or bladder control) 5. any other symptoms that concern you. D. Please call the office at if you have any concerns or questions about your operation or recovery. MANAGING PAIN AFTER SPINAL SURGERY 1. Narcotic medication is intended for short-term use and will be provided for surgical pain. Surgical pain usually lasts for a period of 4-6 weeks. Narcotic medication includes Percocet, Vicodin, Darvocet, Tylenol #3 or Lortab. 2. Longer-term pain is more appropriately treated with non-narcotic medication such as Tylenol ES. 3. Muscle spasm is not appropriately treated with narcotics. Muscle relaxers such as Soma, Flexeril or Skelaxin can be used along with Tylenol ES. 4. Remember that we all live with some "aches and pains". This is not unusual or uncommon after an injury or as we get older. 5. We will provide appropriate medication within the normal guidelines of their prescribed use. We will also be very cautious and aware of potential abuse and extended duration of patients' medication needs. 6. Please allow 2-3 days to process refills. Prescriptions will not be mailed but must be picked up at the office. FOLLOW UP VISIT: Keep your scheduled follow-up appointment- in 2 weeks. Any questions, please call the office at . Pending Studies at Discharge: No Stand-Alone Forms: My [facility] Skilled Items Patient informed of condition?: Yes DNR: Yes Discharge Level of Care: Other Communicable Disease: No Discharge Prognosis: Stable Lines: None Urinary Catheter: No Medications and DC Order Prescriptions: New lisinopril 20 mg Tablet 20 mg PO QAM 30 Days Qty: 30 RF: 0 Continued terazosin 10 mg capsule 10 mg PO QAM RF: 0 albuterol sulfate [ProAir HFA] 90 mcg/actuation HFA aerosol inhaler 2 puff inhalation Q4H PRN (Reason: Shortness Of Breath) RF: 0 furosemide 40 mg tablet 40 mg PO QAM RF: 0 atorvastatin 80 mg tablet 80 mg PO HS RF: 0 aspirin 81 mg Tablet,Delayed Release (Dr/Ec) 81 mg PO QAM RF: 0 zolpidem 10 mg tablet 10 mg PO HS RF: 0 metoprolol tartrate 25 mg Tablet 12.5 tab PO BID RF: 0 Symbicort 160-4.5 mcg/actuation Hfa Aerosol Inhaler 2 puff INHALATION BID RF: 0 Discontinued lisinopril 10 mg tablet 10 mg PO QAM RF: 0 Discharge Orders: Discharge Order (Routine); Ordered 10/08/19 Ordered By: Rocío Chua Admission Data Admit Date/Time: 05/31/19 21:14 Attending Provider: Austin Salgado Admit Provider: John Schmid Primary Care Provider: Abelardo Kenney Other Providers: Misael Mauricio ; Michael Juan ; Maulik Pulido ; Tapan Smith ; Raul Forman ; Regino Vasquez ; Thiago Méndez ; Selvin Kimble Jr ; Jim Izaguirre ; Lorin Hoang ; Shahrzad Tran ; Dallin Stephenson ; Dallin Garcia ; Chester Cross ; Murray Lambert ; Jennifer Almodovar ; Tiarra Blackman Other Interventions: Discharge Summary Assessment (RN) Last Done: 06/06/19 19:14 DC Date/Time DO NOT enter until pt leaves facility: 06/06/19 20:10 Supervising Physician Co-Signing Physician Notes Attending Attestation and Discharge Note: Pt seen/examined, chart reviewed, discharge care plan d/w PA Rocío Chua. I agree w/ the pino components of her discharge documentation. 89yo male with h/o hairy cell leukemia, CAD, and asthma who presented with progressive b/l upper extremity weakness and ambulatory dysfunction/balance issues. Found on imaging of c-spine severe cervical spine stenosis especially at C3-C4 and C4-C5. Underwent C4 corpectomy by Dr Colten Juan after it was felt that he was optimized from a cardiopulmonary standpoint. Cardiology was indeed consulted pre-op to comment on his readiness for surgery. Post-op course was marked by one episode of fever, mild cough/wheezing 2nd to asthma, and mild dysphagia that improved with time. By the time of discharge he was ambulating well enough to allow safe d/c home. He will complete a course of PO levaquin for possible left-sided pneumonia. He will also continue on albuterol for his asthma. Labs and vitals remained stable throughout his stay. He had no ischemic symptoms post-op. Appetite was good on day of discharge. Exam: gen - NAD neck - c-collar in place heart - RRR, s1 s2 lungs - slight decrease in BS both bases, hint of end-exp wheeze, no rales abd - soft NT ND BS+ ext - no edema neuro - strength handgrip nearing 5/5 b/l; strength b/l hip flexion 5/5 Austin Salgado MD
== END 2019-06-06 20:10 | disposition home or self-care (01) | DRG 471 ==
LOC: ED 18:53 → SUATTDRO 21:14 → 2N 21:14 → 3E 06-03 07:32